=== PATIENT | female | born 1950 | race Caucasian/White ===

== ENCOUNTER 2019-05-31 14:41 | Inpatient (IN) | payer OTHER ==
[2019-05-31 14:49] VITALS: BMI 43.0
--- NOTE | 2019-05-31 15:21 | PDOC ---
History of Present Illness - General Chief Complaint: Respiratory Stated Complaint: DIFFICULTY BREATHING Time Seen by Provider: 05/31/19 14:55 Past History - Past Medical History Allergies/Adverse Reactions: Allergies Allergy/AdvReac Type Severity Reaction Status Date / Time No Known Allergies Allergy Verified 05/31/19 14:44 Home Medications: Ambulatory Orders NK [No Known Home Medication] 05/31/19 COPD: No - Psycho Social/Smoking Cessation Hx Smoking History: Never smoked Hx Alcohol Use: No Drug/Substance Use Hx: No *Physical Exam - Vital Signs Last Vital Signs Temp Pulse Resp BP Pulse Ox 97.9 F 88 30 H 194/106 H 88 L 05/31/19 14:48 05/31/19 14:48 05/31/19 14:48 05/31/19 14:48 05/31/19 14:48 ED Treatment Course - LABORATORY CBC & Chemistry Diagram: 05/31/19 16:14 05/31/19 16:19 Medical Decision Making - Medical Decision Making 05/31/19 16:13 HPI: 68yo F hx morbid obesity, nerve damage L side and chronic intermittent swelling of L hand and foot, and breast cancer (s/p 7 radiation treatments, then d/c'd treatments self because doesn't believe has cancer) sent by PCP Dr Ran Sanchez for SOB and QUIJANO x11yrs, worse past month, worse when lies down. Pt states she was diagnosed with breast cancer by a mammogram and lump in her L breast, but a biopsy wasn't done. Pt states she got 7 radiation treatments before a biopsy was done which said she had cancer, but pt didn't believe it and thought the care was incorrect to she stopped treatments in January and has not been to a doctor since until today, first appt with Dr Sanchez. Pt states she has had QUIJANO x11yrs but got worse since January, now unable to walk a few steps without SOB, and worse with lying down, especially worse the past 1mo. Since January she also c/o constant substernal heaviness that could be her reflux, endorses N/V after eating often, plus lots of burping. Used to take unknown reflux med but stopped months ago because ran out. 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 Denies hormone use, recent travel, recent illness, sick contacts, DVT/PE hx, recent surgeries, new leg swelling (chronic ankle swelling) , fever, chills, fatigue, headache, dizziness, numbness/tingling, weakness, vision changes, cough, palpitations, abdominal pain, blood in stool, diarrhea, constipation, dysuria, hematuria, confusion. ROS: Constitutional: Negative for chills, fever, fatigue, diaphoresis. HENT: Negative for sore throat, rhinorrhea, congestion. Eyes: Negative for visual disturbance. Respiratory: Positive for shortness of breath. Negative for cough, and wheezing. Cardiovascular: Positive for chest pain. Negative for palpitations, and new leg swelling. Gastrointestinal: Positive for nausea and vomiting. Negative for abdominal pain , blood in stool, constipation, diarrhea. Genitourinary: Negative for dysuria, flank pain, and hematuria. Musculoskeletal: Negative for myalgias, back pain, and neck pain. Skin: Positive for inverted nipple and skin dimpling L breast. Negative for rash. Neurological: Negative for light-headedness, dizziness, vertigo, syncope, weakness, numbness and headaches. Psychiatric/Behavioral: Negative for behavioral problems and confusion. PE: Gen: Alert, mild respiratory distress improves when sits upright, anxious- appearing, morbidly obese HEENT: PERRL, EOMI, MMM, NCAT. No conjunctival pallor. Sclera are non-icteric. CV: Regular rate and rhythm. No murmurs, rubs, or gallops. BREAST: Inverted L nipple with dimpling inferior L breast PULM: Moderate resp distress when lies down with lip pursing. CTAB (but difficult to assess 2/2 habitus), no wheezes, rales, or rhonchi. ABD: soft, NT, protuberant/distended, no rebound tenderness or guarding, no CVA tenderness. BACK: No TTP of c/t/l-spine. No step-offs or deformities. MSK: No bony deformities. 2+ pulses in all extremities. NEURO: AAOx3. PERRL. No gross CN deficits. Strength and sensation grossly intact throughout. EXTREMITIES: No cyanosis. No clubbing. No calf tenderness. 2+ pitting edema BLEs. Swollen L ankle and L hand (chronic per pt) PSYCH: Anxious mood and normal thought pattern. SKIN: Warm and dry. Normal capillary refill. No rashes. No jaundice. MDM: 68yo F hx morbid obesity, nerve damage L side and chronic intermittent swelling of L hand and foot, and breast cancer (s/p 7 radiation treatments, then d/c'd treatments self because doesn't believe has cancer) sent by PCP Dr Ran Sanchez for SOB and QUIJANO x11yrs, worse past month, worse when lies down. VS reviewed. Normal HR, afebrile, O2 sat and RR WNL when sitting upright but desats to 88% and RR increases when lies down or gets anxious, initially hypertensive but normotensive once relaxes. Most likely pulmonary edema and pleural effusion 2/2 malignancy. Also consider CHF exacerbation, other etiologies of fluid overload, COPD exacerbation, PNA, radiation pneumonitis, ACS/NV, arrhythmia, PE, metabolic derangement, anemia, infection -EKG reviewed: 84bpm, NSR, normal axis, normal intervals, no e/o acute ischemia -CXR reviewed: large heart, infiltrate, R hilar prominence, some fluid at L base with some atelectasis and/or infiltrate, some congestive changes, excessive soft tissues, no prior for comparison -Duplex LEs DVT, echo, lung: reviewed, notable for B-lines -Labs including BNP,cardiac profile -If sx persist despite lasix/bipap, consider CTPE -Lasix 40 -Bipap for fluid overload -Dispo: admit 05/31/19 17:27 Labs reviewed. Notable for BNP 168 Pt c/o chronic reflux and nausea, requesting meds. -Pepcid and Zofran Pt admitted by Attending Dr Schilling. -CTPE -CTAP to evmi for mets 05/31/19 23:16 Discussed pt's desire to leave AMA due to her insurance not covering admissions at this hospital. Called Dr Sanchez and spoke on the phone, he states that her insurance does cover emergency admissions (not direct admissions) so this admission will be covered. Informed pt of what Dr Sanchez said and pt agrees to be admitted. CTs reviewed. Pt given results. Discussed results with pt. CTA chest: IMPRESSION: Moderate left-sided and small to moderate right-sided pleural effusions are noted with resultant bibasilar compressive atelectasis. There is no definite CT evidence of pulmonary embolism. Evaluation of the lower lobe peripheral vessels is somewhat limited due to vessel crowding as a result of the described pleural effusions. Multifocal thoracolumbar, sternal and bilateral pelvic osteoblastic neoplastic lesions are noted. The partially imaged left breast demonstrates nonspecific soft tissue stranding and mild skin thickening - ? neoplastic disease and/or post treatment change. There is nonspecific soft tissue thickening within the left axilla which could be on the basis of scarring and/or confluent lymphadenopathy. A nonspecific mildly enlarged right hilar lymph node is noted. CTAP: Evaluation is somewhat limited due to body habitus. A small to moderate amount of ascites is seen within the abdomen and pelvis. Mesenteric soft tissue stranding is noted within the abdomen ventrally suggestive of possible carcinomatosis. Multifocal osteoblastic neoplastic lesions are seen. There is mild nonspecific left adrenal gland thickening. Minimal splenomegaly. Focal fatty infiltration is noted within the right hepatic lobe. The kidneys appear to demonstrate minimal to mild bilateral hydronephrosis versus small bilateral peripelvic cysts simulating minimal to mild hydronephrosis. There is no ureteral dilatation or urinary bladder overdistention. Discharge - Discharge Information Problems reviewed: Yes Clinical Impression/Diagnosis: Pleural effusion, Carcinomatosis - Admission Yes - Follow up/Referral - Patient Discharge Instructions - Post Discharge Activity
--- NOTE | 2019-05-31 16:10 | EKG ---
Test Reason : Blood Pressure : / mmHG Vent. Rate : 084 BPM Atrial Rate : 084 BPM P-R Int : 134 ms QRS Dur : 074 ms QT Int : 372 ms P-R-T Axes : 058 019 030 degrees QTc Int : 439 ms POOR DATA QUALITY, INTERPRETATION MAY BE ADVERSELY AFFECTED NORMAL SINUS RHYTHM NORMAL ECG NO PREVIOUS ECGS AVAILABLE Confirmed by JUANSI BRAMBILA MD ([id number]) on 05/31/2019 4:09:38 PM Referred By: Confirmed By:JUANIS BRAMBILA MD
[2019-05-31 16:52] LABS: EOS % 2.2 % (0-4.5); HEMATOCRIT 33.5 % (32.4-45.2); HEMOGLOBIN 11.2 GM/dL (10.7-15.3); LYMPH % 13.8 % (8-40); MCH 30.6 pg (25.7-33.7); MCHC 33.4 g/dl (32.0-36.0); MEAN CELL VOLUME 91.7 fl (80-96); MEAN PLT VOLUME 8.9 fl (7.5-11.1); MONO % 7.2 % (3.8-10.2); NEUT % 75.8 % (42.8-82.8); PLATELET COUNT 183 K/MM3 (134-434); RBC 3.65 M/mm3 (3.60-5.2); RDW 15.6 % (11.6-15.6); WHITE BLOOD COUNT 6.5 K/mm3 (4.0-10.0)
[2019-05-31] MEDS ORDERED: FUROSEMIDE 40 MG/4 ML INJECTABLE VIAL IVPUSH ONE (16:55)
--- NOTE | 2019-05-31 17:06 | PDOC ---
Attending Attestation - Resident Resident Name: Roseline Nicholas - ED Attending Attestation I have performed the following: I have examined & evaluated the patient, The case was reviewed & discussed with the resident, I agree w/resident's findings & plan, Exceptions are as noted - HPI HPI: 05/31/19 17:27 68yo female with poss hx of breast ca sent from Dr. Ran Grimes for eval of elevated bp, sob. Pt states she could barely breath last night in bed. Denies cp. Pt states she was dx with breast ca and underwent 8 sessions of radiation therapy. Pt states she saw dr. grimes for the first time today. Pt has not had a colonoscopy. Pt states her last pet scan showed "bone cancer". Pt presents sob , tachypnic, conversational dyspnea, hypertensive. - Physicial Exam PE: 05/31/19 17:33 Gen: aaox3, tachypnic, conversational dyspnea heart: +s1s2 reg lungs: diminished bs L base, rales diffusely, tachypnic, conversational dyspnea abd: soft, obese, no ttp ext: trace edema LE - Critical Care Time Total Critical Care Time: 45 Critical Care Statement: The care of this patient involved high complexity decision making to prevent further life threatening deterioration of the patient 's condition and/or to evaluate & treat vital organ system(s) failure or risk of failure. - Medical Decision Making 05/31/19 17:34 a/p: 68yo female with poss breast ca hx sent for eval of sob, tachypnea, hypoxia (84 RA) -labs sent, bnp, cardiac enzymes -bedside ultrasound shows b lines, pleural effusion on the L, ascites in the abd , hydronephrosis -cxr shows L pleural effusion and pulm vasc congestion -pt hypoxic, placed on bipap for comfort and work of breathing 05/31/19 17:37 cbc reviewed pt off bipap on nc and feeling better lasix ordered case discussed with Dr. Grimes who agrees with lasix and ct c/a/p ct pending Dr. Grimes accepts pt to service 05/31/19 19:31 pt states she does not want to be admitted here given her insurance does not cover sjr. pt states she will go to ct will discuss ct findings with dr. grimes pt states she will sign out after the emergency workup has been completed will continue to monitor and reassess discussed risks/benefits of ama discussed risks of leaving the hospital given her sob and pleural effusion Heart Score/ECG Review - ECG Intrepretation Comment:: 05/31/19 17:38 sinus at 84, nl axis, nl interval, no acute st/t wave findings
[2019-05-31 17:10] LABS: INR 1.01 (0.83-1.09); PROTHROMBIN TIME (PATIENT) 11.9 SEC (9.7-13.0)
[2019-05-31 17:13] LABS: ACTIVATED PTT 23.2 SECONDS (25.2-36.5)
[2019-05-31] MEDS ORDERED: FAMOTIDINE 20 MG/50 ML IVPB 20 MG/50 ML MG IVPB ONE ×2 (17:27→18:08)
[2019-05-31] MEDS ORDERED: ONDANSETRON 4 MG/2 ML VIAL IVPUSH ONE (17:27)
[2019-05-31 17:45] LABS: ALBUMIN 2.7 g/dl (3.4-5.0); ALK PHOS 65 U/L (45-117); ANION GAP 6 MMOL/L (8-16); BILIRUBIN,TOTAL 0.4 mg/dL (0.2-1); BLOOD UREA NITROGEN 14.2 mg/dL (7-18); CHLORIDE 113 mmol/L (98-107); CO2 27 mmol/L (21-32); CREATININE 0.7 mg/dL (0.55-1.3); GLUCOSE,RANDOM 76 mg/dL (74-106); MAGNESIUM 1.8 mg/dL (1.8-2.4); N-TERMINAL BNP 168.9 pg/ml (5-125); PHOSPHOROUS 2.9 mg/dL (2.5-4.9); POTASSIUM 3.4 mmol/L (3.5-5.1); SGOT/AST 38 U/L (15-37); SGPT/ALT 27 U/L (13-61); SODIUM 146 mmol/L (136-145); TOT PROT 5.6 g/dl (6.4-8.2)
[2019-05-31] MEDS ORDERED: ONDANSETRON 4 MG/2 ML VIAL ONE (18:08)
[2019-05-31] MEDS ORDERED: POTASSIUM CHLORIDE ORAL LIQUID 20 MEQ/15 ML PO ONE (23:38)
[2019-05-31] MEDS ORDERED: IPRATROPIUM BR 0.02% 0.5 MG/2.5 ML VIAL.NEB. NEB PRN (23:39)
--- NOTE | 2019-05-31 23:46 | HP ---
Admitting History and Physical - Admission Chief Complaint: pt came to my office new pt c/o sob at rest 1 wk and getting worst. pt diff saying full sentence sent er matthew History Source: Patient Limitations to Obtaining History: Poor Historian - Past Medical History Gastrointestinal: Yes: Ascites ...: No - Past Surgical History Past Surgical History: Yes: None - Smoking History Smoking history: Never smoked Have you smoked in the past 12 months: No - Alcohol/Substance Use Hx Alcohol Use: No - Social History Usual Living Arrangement: Yes: With Spouse History of Recent Travel: No Home Medications - Allergies Allergies/Adverse Reactions: Allergies Allergy/AdvReac Type Severity Reaction Status Date / Time No Known Allergies Allergy Verified 05/31/19 14:44 - Home Medications Home Medications: Ambulatory Orders NK [No Known Home Medication] 05/31/19 Family Medical History Family History: Unremarkable Review of Systems - Review of Systems Constitutional: reports: Weakness Eyes: reports: No Symptoms HENT: reports: No Symptoms Neck: reports: No Symptoms Cardiovascular: reports: No Symptoms Respiratory: reports: SOB Gastrointestinal: reports: No Symptoms Genitourinary: reports: No Symptoms Breasts: reports: Other (axilla neurapathy as per pt) Musculoskeletal: reports: Other (lt arm pin needles) Integumentary: reports: No Symptoms Neurological: reports: No Symptoms Endocrine: reports: No Symptoms Hematology/Lymphatic: reports: No Symptoms Psychiatric: reports: Anxiety Physical Examination Vital Signs: Vital Signs Temperature 97.7 F 05/31/19 20:49 Pulse Rate 102 H 05/31/19 20:49 Respiratory Rate 20 05/31/19 20:49 Blood Pressure 142/78 05/31/19 20:49 O2 Sat by Pulse Oximetry (%) 95 05/31/19 21:00 Constitutional: Yes: Well Nourished, Anxious Eyes: Yes: WNL HENT: Yes: WNL Neck: Yes: WNL Cardiovascular: Yes: WNL Respiratory: Yes: Diminished Gastrointestinal: Yes: Abdomen, Obese, Hypoactive Bowel Sounds ...Rectal Exam: Yes: Deferred Breast(s): Yes: WNL Musculoskeletal: Yes: WNL Edema: No Peripheral Pulses WNL: Yes Integumentary: Yes: WNL Neurological: Yes: WNL ...Motor Strength: WNL Psychiatric: Yes: WNL Labs: CBC, BMP 05/31/19 16:14 05/31/19 16:19 Problem List - Problems (1) Obese body habitus Code(s): E66.9 - OBESITY, UNSPECIFIED Assessment/Plan bipap k corrected onco pulm chest consults brain skelatel to complete cancer w/u reg diet bed rest dvt priphylasisi neb tx luis e inhalers chk labs in am
[2019-05-31] MEDS ORDERED: ALBUTEROL SO4 HFA INHALER IH PRN (23:49)
[2019-06-01] MEDS ORDERED: POTASSIUM CHLORIDE ORAL LIQUID 20 MEQ/15 ML ONE ×2 (00:21→00:29)
[2019-06-01 08:37] LABS: BASO % 0.5 % (0-2.0); EOS % 2.7 % (0-4.5); HEMOGLOBIN 11.1 GM/dL (10.7-15.3); LYMPH % 11.5 % (8-40); MCH 30.1 pg (25.7-33.7); MCHC 32.8 g/dl (32.0-36.0); MEAN CELL VOLUME 91.7 fl (80-96); MEAN PLT VOLUME 8.4 fl (7.5-11.1); MONO % 8.1 % (3.8-10.2); NEUT % 77.2 % (42.8-82.8); PLATELET COUNT 168 K/MM3 (134-434); RBC 3.71 M/mm3 (3.60-5.2); RDW 15.5 % (11.6-15.6); WHITE BLOOD COUNT 5.3 K/mm3 (4.0-10.0)
[2019-06-01 09:31] LABS: ALBUMIN 2.9 g/dl (3.4-5.0); BILIRUBIN,TOTAL 0.6 mg/dL (0.2-1); BLOOD UREA NITROGEN 18.1 mg/dL (7-18); CALCIUM 8.6 mg/dL (8.5-10.1); CREATININE 1.1 mg/dL (0.55-1.3); POTASSIUM 5.5 mmol/L (3.5-5.1); TOT PROT 6.6 g/dl (6.4-8.2)
--- NOTE | 2019-06-01 11:56 | PN ---
Progress Note (short form) - Note Progress Note: PULMONARY CONSULTATION DICTATED 06/01/19 IMP RESPIRATORY DISTRESS BILATERAL PLEURAL EFFUSIONS LIKELY SECONDARY TO ASCITES LIKELY MALIGNANT METASTATIC CA ? BREAST H/O BREAST CA S/P RT X 7 MULTILEVEL OSTEOBLASTIC LESIONS THORACOLUMBAR,PELVIC,STERNUM MORBID OBESITY PLAN O2,NIPPV NEEDED ABG CONSIDER THORACENTESIS LYMPH NODE BX ECHO MONITOR LYTES F/U CHEST X-RAY Problem List - Problems (1) Ascites Code(s): R18.8 - OTHER ASCITES (2) Carcinomatosis Code(s): C80.0 - DISSEMINATED MALIGNANT NEOPLASM, UNSPECIFIED (3) Obese body habitus Code(s): E66.9 - OBESITY, UNSPECIFIED (4) Pleural effusion Code(s): J90 - PLEURAL EFFUSION, NOT ELSEWHERE CLASSIFIED (5) Dyspnea Code(s): R06.00 - DYSPNEA, UNSPECIFIED (6) Respiratory distress Code(s): R06.03 - ACUTE RESPIRATORY DISTRESS
--- NOTE | 2019-06-01 12:49 | CONS ---
DATE OF CONSULTATION: 06/01/2019 REFERRING PHYSICIAN: Ran Sanchez MD HISTORY: Patient is a 68-year-old white female with past medical history of morbid obesity, nerve damage to the left side with chronic, intermittent swelling of the left hand and foot, history of recently diagnosed breast carcinoma in January 2019. Apparently, was treated with some radiation treatments and then discontinued treatments secondary to she did not believe she had cancer. Unsure whether or not she had a biopsy. Complains of shortness of breath and dyspnea on exertion. Patient states that since January she has started developing increasing shortness of breath with marked dyspnea with minimal exertion. Apparently, yesterday she went to see Dr. Sanchez with the above complaints, and she was noted to be markedly dyspneic with minimal exertion at which time she was advised to go to the emergency room. She denies any fevers or weight loss or night sweats. There is no history of occupational exposure to chemicals or fumes, and she is a nonsmoker. She denies any history of COPD or asthma in the past. She also has been complaining of increasing orthopnea. Denies any hemoptysis. On admission, she underwent a CTA of the chest, which revealed no evidence of pulmonary emboli. Revealed moderate bilateral pleural effusion left greater than right as well as abdominal CT revealed evidence of multifocal thoracolumbar and bilateral pelvic osteoblastic neoplastic lesions were noted. Patient was admitted. On admission, she was placed on BiPAP secondary to shortness of breath and transferred up to medical floor for management. PAST MEDICAL HISTORY: Again includes obesity, breast carcinoma status post RT x7. No biopsy performed. History of nerve damage left side with chronic, intermittent swelling left hand and foot. REVIEW OF SYSTEMS: Positive orthopnea. Positive dyspnea. No chest pain, no palpitations, no fever, no weight loss, no night sweats, no hemoptysis, no abdominal pain. CURRENT MEDICATIONS: Include albuterol and Aldactone. PHYSICAL EXAMINATION: General: Patient is a morbidly obese female awake, alert on BiPAP. Appears comfortable in no acute distress. Vital Signs: She is afebrile. Blood pressure 145/71, respiratory rate is 20. HEENT: Normocephalic, atraumatic. Neck: Supple,+ large left supraclavicular node Heart: Regular with S1, S2. Chest: Diminished breath sounds bilaterally. Abdomen: Soft. Bowel sounds are positive. Extremities: No cyanosis or edema. LABORATORIES: WBC 5.3, hemoglobin 11.1, hematocrit 34, platelet count 168,000, INR 1.01, BUN 18, creatinine 1.1. BNP 168.9. Chest CTA reveals moderate bilateral pleural effusions, left greater than right. Abdominal CT, again, [id number] ascites and multilevel thoracolumbar and vertebral body osteoblastic lesions consistent with metastatic disease and several osteoblastic lesions in the body of the sternum and multiple bilateral pelvic osteoblastic lesions. IMPRESSION: 1. Acute respiratory distress, etiology to be determined. 2. Bilateral pleural effusions likely secondary to ascites, likely malignant. 3. Metastatic carcinoma, likely breast. 4. History of breast carcinoma status post radiation therapy x7. 5. Multiple osteoblastic lesions consistent with metastatic disease and evidence of mesenteric stranding suspicious for carcinomatosis. 6. Morbid obesity. 7. Likely obstructive sleep apnea. PLAN: O2. NIPPV as needed. Check arterial blood gas. Consider thoracentesis, paracentesis to try to obtain diagnosis.Lymph node bx, Obtain echocardiogram. Monitor electrolytes. Oncology evaluation. Also, follow up chest x-ray. MAREK BARRETT M.D. [id number] MTDAllison
--- NOTE | 2019-06-01 12:52 | PN ---
Progress Note, Physician Chief Complaint: less sob now c/o gerd vss pulm onco appretiated - Current Medication List Current Medications: Active Medications Albuterol Sulfate (Ventolin Hfa Inhaler -) 2 puff IH Q4H PRN PRN Reason: SHORT OF BREATH/WHEEZING Ipratropium [place] (Atrovent 0.02% Nebulizer -) 1 amp NEB Q6H PRN PRN Reason: Dyspnea Stop: 06/07/19 23:39 Spironolactone (Aldactone -) 25 mg PO DAILY [facility] - Objective Vital Signs: Vital Signs Temperature 97.5 F L 06/01/19 08:00 Pulse Rate 81 06/01/19 08:00 Respiratory Rate 20 06/01/19 08:00 Blood Pressure 145/71 06/01/19 08:00 O2 Sat by Pulse Oximetry (%) 98 06/01/19 12:12 Constitutional: Yes: Calm Eyes: Yes: WNL HENT: Yes: WNL Cardiovascular: Yes: WNL Respiratory: Yes: Diminished Gastrointestinal: Yes: Abdomen, Obese, Ascites ...Rectal Exam: Yes: Deferred, Other Genitourinary: Yes: Vaginal Discharge Breast(s): Yes: Left, Mass Musculoskeletal: Yes: WNL Extremities: Yes: WNL Edema: Yes Edema: LLE: 1+, RLE: 1+ Integumentary: Yes: WNL ...Motor Strength: WNL Psychiatric: Yes: WNL Labs: CBC, BMP 06/01/19 08:00 06/01/19 08:00 INR, PTT INR 1.01 (0.83-1.09) 05/31/19 16:19 Problem List - Problems (1) Obese body habitus Assessment/Plan: carcinamatosis? primAry ? breast??? gerd l/s pain mild scale2 pl lung pl fluid asites? watchk levels Code(s): E66.9 - OBESITY, UNSPECIFIED Assessment/Plan f/u onco get all radiografics done for proper dx ca dr [place] ? taP PPI TX
--- NOTE | 2019-06-01 13:01 | PN ---
Progress Note, Physician - Current Medication List Current Medications: Active Medications Albuterol Sulfate (Ventolin Hfa Inhaler -) 2 puff IH Q4H PRN PRN Reason: SHORT OF BREATH/WHEEZING Ipratropium [place] (Atrovent 0.02% Nebulizer -) 1 amp NEB Q6H PRN PRN Reason: Dyspnea Stop: 06/07/19 23:39 Pantoprazole Sodium (Protonix -) 40 mg PO DAILY [facility] Spironolactone (Aldactone -) 25 mg PO DAILY [facility] - Objective Vital Signs: Vital Signs Temperature 97.5 F L 06/01/19 08:00 Pulse Rate 81 06/01/19 08:00 Respiratory Rate 20 06/01/19 08:00 Blood Pressure 145/71 06/01/19 08:00 O2 Sat by Pulse Oximetry (%) 98 06/01/19 12:12 Constitutional: Yes: Well Nourished Eyes: Yes: WNL HENT: Yes: Other (LT SUPRACLAVICULA MASS FLAT? LT NECK MASS LT AXILLA MASS) Neck: Yes: Lymphadenopathy Cardiovascular: Yes: WNL ...Rectal Exam: Yes: Deferred Genitourinary: Yes: WNL Breast(s): Yes: Left, Dimpling, Mass Musculoskeletal: Yes: WNL Extremities: Yes: WNL Edema: Yes Edema: LLE: 1+, RLE: 1+ Peripheral Pulses WNL: Yes Neurological: Yes: WNL ...Motor Strength: WNL Psychiatric: Yes: WNL Labs: CBC, BMP 06/01/19 08:00 06/01/19 08:00 INR, PTT INR 1.01 (0.83-1.09) 05/31/19 16:19 Problem List - Problems (1) Obese body habitus Code(s): E66.9 - OBESITY, UNSPECIFIED
--- NOTE | 2019-06-01 13:31 | PN ---
Progress Note (short form) - Note Progress Note: Patient seen and examined CONSULT DICTATED 68yearo old female , nulliparous. No hormones or BCP. Mammography in 06/2018- dense breasts January 2019 - seen by Dr. Frost- 7 treatments of RT PRIOR to biopsy. Then referreed to [facility] for biopsy of left breast . Details - not known. Had 2 additional treatments of RT and then discontinued same. No other treatment given. Presents now with bilateral pleural effusions, SOB, osteoblastic mets. Last Vital Signs Temp Pulse Resp BP Pulse Ox 97.5 F L 81 20 145/71 98 06/01/19 08:00 06/01/19 08:00 06/01/19 08:00 06/01/19 08:00 06/01/19 12:12 HEENT: DEBORAH, EOM Intact Oropharynx: No thrush, No mucositis Neck: Supple Nodes: Left supraclavicular node--3.5 x 3.5., left posterior erythematous cutaneous met- 2.5 x 2.5., occipital nodule 2x 2. Breasts: left breast indurated, thickened, inverted nipple6:00 area Cor: RSR, No murmurs, No gallops Lungs: diminished breast sounds bilaterallt Abd: Soft, Normal bowel sounds, obese, liver 3 FB Ext:No significant edema Skin: cutaneous, erythematous left posterior met CBC, BMP 06/01/19 08:00 06/01/19 08:00 Current Medications Generic Name Dose Route Start Last Admin Trade Name Freq PRN Reason Stop Dose Admin Albuterol Sulfate 2 puff 05/31/19 23:49 Ventolin Hfa Inhaler - IH Q4H PRN SHORT OF BREATH/WHEEZING Ipratropium [place] 1 amp 05/31/19 23:39 Atrovent 0.02% Nebulizer - NEB 06/07/19 23:39 Q6H PRN Dyspnea Pantoprazole Sodium 40 mg 06/02/19 10:00 Protonix - PO DAILY [facility] Spironolactone 25 mg 06/01/19 10:00 Aldactone - PO DAILY [facility] Impression: Metastatic breast carcinoma with estephania, bone, cutaneous ,? pleural, ? liver mets. (ascites) Suggest biopsy of either left supraclavicular node or left axillary node for ER , DE, Her-2-suyapa status. I contacted [facility] - -- on January,, patient had 2 biopsies of breast and axilla Both positive for invasive mammary carcinoma--(1.5, 1.4 cm in size) ER on first biopsy ->95%, DE >95%, Her-2 equivocal--additional studies- negative . Can also do thoracentesis for cytology and for improvement in SOB I placed a copy of [facility] imaging biopsies in chart.
[2019-06-01 13:32] LABS: ARTERIAL BLD GAS O2 SATURATION 96.8 % (95-98); ARTERIAL BLOOD GAS BASE EXCESS 5.3 meq/l (-2-2); ARTERIAL BLOOD GAS PCO2 52.5 mmHg (35-45); ARTERIAL BLOOD GAS PO2 90.1 mmHg (80-100); ARTERIAL BLOOD GAS pH 7.39 (7.35-7.45)
[2019-06-01 13:35] LABS: ALLENS TEST POSITIVE
--- NOTE | 2019-06-01 14:00 | CONS ---
DATE OF CONSULTATION: 06/01/2019 HISTORY OF PRESENT ILLNESS: This 68-year-old female presented with shortness of breath. Her history is somewhat vague. She has been developing progressive shortness of breath over the past several weeks. 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 History includes patient is a nulliparous female who had her menarche at age 16 and menopause at age 57. There are no hormones or control pills. She had normal, regular periods growing up. Patient is a nonsmoker, nondrinker. No illicit drugs. No industrial exposures. She is . FAMILY HISTORY: Negative for breast cancer, ovarian cancer. Patient states she had a mammogram done in June and told there was a density. In January, she was seen by Dr. Frost in the [facility] and received 7 radiation treatments, despite the fact that she did not have a biopsy. Thereafter, she went to [facility], underwent a biopsy. She had 2 additional radiation treatments and did not have any additional treatments thereafter; no hormones and no chemotherapy. REVIEW OF SYSTEMS: No headaches. No diplopia. No epistaxis. No dysphagia. The patient has reflux, shortness of breath, difficulty breathing. No chest pain. Some numbness on the left side, an indurated left breast, some nausea which she relates to the reflux. No diarrhea, constipation, melena. No dysuria or hematuria. No postmenopausal vaginal bleeding. Lower back pain. Some numbness of the lower extremities. CURRENT MEDICATIONS: Include Protonix, Aldactone, and Atrovent. ALLERGIES: No known allergies. CURRENT PHYSICAL: Vital Signs: BP 145/71, pulse 81, respiratory 20, temp 97.5 HEENT: DEBORAH. EOM intact. Oropharynx: Unremarkable. Lymphatics: There is a 3.5 x 3.5 cm left supraclavicular node. There is a cutaneous nodule, 2.5 x 2.5, erythematous and raised in the posterior neck. There is an occipital nodule 2 cm in size. There is also a left axillary node, 2.5 cm in size, hard, firm. Breasts: The left breast is indurated with nipple inversion, some retraction of the breast. The induration is mainly in the 6 o'clock axis. The right breast without masses. Cardiac: RSR. Abdomen: Obese. There is a liver 6 cm. Extremities: There is trace lower extremity edema. LABORATORY: Sodium 140 currently, K of 5.5, BUN 18, creatinine , calcium 8.6, AST 72, ALT 33, alkaline phosphatase 73, protein 6.6, albumin 2.9. INR 1.01, PTT 23. Chemistries: As aforementioned. 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 IMPRESSION: Patient with a likely metastatic breast CA. Need to get details of prior treatment. Would suggest biopsy of supraclavicular or axillary node for tissue. Thoracentesis can be performed for improvement in respiratory status. Based upon the results of the biopsy and based upon the history, further recommendations. GALE RUSH M.D. JUAN [id number]
--- NOTE | 2019-06-01 14:30 | CONSULT ---
Consult Consult Specialty:: Thoracic Surgery Referred by:: Medicine/Dr. Sanchez Reason for Consultation:: B/L pleural effusions - History of Present Illness Chief Complaint: dyspnea on exertion x 1 month History of Present Illness: 68F morbidly obese with h/o breast cancer s/p left RT, p/w dyspnea on exertion worse over last week, but duration about 1 month. Endorses weight loss as well. 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 Pulmonary: Yes: Other (b/l pleural effusions) Gastrointestinal: Yes: Ascites ...: No - Past Surgical History Past Surgical History: Yes: None - Alcohol/Substance Use Hx Alcohol Use: No - Smoking History Smoking history: Never smoked Have you smoked in the past 12 months: No - Social History History of Recent Travel: No Home Medications - Allergies Allergies/Adverse Reactions: Allergies Allergy/AdvReac Type Severity Reaction Status Date / Time No Known Allergies Allergy Verified 05/31/19 14:44 - Home Medications Home Medications: Ambulatory Orders NK [No Known Home Medication] 05/31/19 Review of Systems - Review of Systems Constitutional: reports: Weakness Respiratory: reports: SOB on Exertion Physical Exam Vital Signs: Vital Signs Temperature 97.5 F L 06/01/19 08:00 Pulse Rate 81 06/01/19 08:00 Respiratory Rate 20 06/01/19 08:00 Blood Pressure 145/71 06/01/19 08:00 O2 Sat by Pulse Oximetry (%) 98 06/01/19 12:12 Labs: CBC, BMP 06/01/19 08:00 06/01/19 08:00 Imaging - Results Cat Scan: Image Reviewed Problem List - Problems (1) Ascites Code(s): R18.8 - OTHER ASCITES (2) Dyspnea Code(s): R06.00 - DYSPNEA, UNSPECIFIED (3) Obese body habitus Code(s): E66.9 - OBESITY, UNSPECIFIED (4) Pleural effusion Code(s): J90 - PLEURAL EFFUSION, NOT ELSEWHERE CLASSIFIED (5) Respiratory distress Code(s): R06.03 - ACUTE RESPIRATORY DISTRESS Assessment/Plan 68F obese, likely metastatic breast cancer (bone lesions, pleural effusions b/l , ascites) p/w vee: --Agree with Dr. Degroot and Dr. Malone to obtain tissue for therapy, could include thoracentesis or other biopsy but effusions are small and unlikely to palliate with drainage at this time;
--- NOTE | 2019-06-01 15:51 | ECHO ---
Name: ANAISOUMAR MORA F Exam:Adult Echocardiogram Study Date: 06/01/2019 03:20 PM Age: 68 yrs Reason For Study: R/O PERICARDIAL EFFUSION, SOB AT REST Height: 70 in Weight: 335 lb BSA: 2.6 m2 MMode/2D Measurements & Calculations IVSd: 1.2 cm Ao root diam: 3.7 cm LVIDd: 4.5 cm LA dimension: 3.6 cm LVIDs: 3.0 cm ACS: 2.3 cm LVPWd: 1.2 cm EDV(Teich): 90.1 ml LVOT diam: 2.0 cm ESV(Teich): 33.8 ml LAV (MOD-bp): 72.0 ml TAPSE: 1.8 cm RV S Gonzalo: 19.8 cm/sec Doppler Measurements & Calculations MV E max gonzalo: 76.0 cm/sec Ao V2 max: 157.5 cm/sec MV A max gonzalo: 77.0 cm/sec Ao max P.9 mmHg MV E/A: 0.99 Ao V2 mean: 105.1 cm/sec MV dec time: 0.20 sec Ao mean P.1 mmHg Ao V2 VTI: 25.[address](I,D): 2.[address](V,D): 2.6 cm2 LV V1 max P.7 mmHg SV(LVOT): 71.7 ml LV V1 mean P.4 mmHg LV V1 max: 129.4 cm/sec LV V1 mean: 83.5 cm/sec LV V1 VTI: 22.6 cm TR max gonzalo: 253.8 cm/sec PA V2 max: 104.5 cm/sec TR max P.8 mmHg PA max P.4 mmHg Med Peak E' Gonzalo: 7.0 cm/sec Med E/e': 10.9 Lat Peak E' Gonzalo: 12.7 cm/sec Lat E/e': 6.0 Tech Comments TDS. Morbidly obese. Suboptimal PLAX/SAX windows. Procedure The study was technically difficult with many images being suboptimal in quality. Left Ventricle Left ventricular systolic function is grossly normal. Ejection Fraction = 55-60%. Regional wall motio n abnormalities cannot be excluded due to limited visualization. Right Ventricle The right ventricle is grossly normal size. The right ventricular systolic function is grossly normal . Atria Normal left and right atrial size and function. Mitral Valve The mitral valve is normal in structure and function. There is mild mitral regurgitation. Tricuspid Valve The tricuspid valve is normal in structure and function. There is mild tricuspid regurgitation. Aortic Valve The aortic valve opens well. No hemodynamically significant valvular aortic stenosis. No aortic regur gitation is present. Pulmonic Valve The pulmonic valve is not well seen, but is grossly normal. There is no pulmonic valvular stenosis. Great Vessels The aortic root is normal size. Pericardium/Pleura There is no pericardial effusion. Interpretation Summary There is no pericardial effusion. The study was technically difficult with many images being suboptimal in quality. Regional wall motion abnormalities cannot be excluded due to limited visualization. Left ventricular systolic function is grossly normal. Ejection Fraction = 55-60%. There is mild mitral regurgitation. There is mild tricuspid regurgitation. MD Nova *Brian 06/01/2019 03:51 PM
[2019-06-01] MEDS: SPIRONOLACTONE 25 MG TABLET (FP) PO SCH (18:13)
[2019-06-02 06:57] LABS: BASO % 0.5 % (0-2.0); EOS % 3.4 % (0-4.5); HEMATOCRIT 33.4 % (32.4-45.2); HEMOGLOBIN 10.9 GM/dL (10.7-15.3); MCH 30.4 pg (25.7-33.7); MCHC 32.8 g/dl (32.0-36.0); MEAN CELL VOLUME 92.9 fl (80-96); MEAN PLT VOLUME 8.8 fl (7.5-11.1); MONO % 8.1 % (3.8-10.2); PLATELET COUNT 166 K/MM3 (134-434); RBC 3.59 M/mm3 (3.60-5.2); RDW 15.4 % (11.6-15.6); WHITE BLOOD COUNT 4.8 K/mm3 (4.0-10.0)
[2019-06-02 07:38] LABS: ALBUMIN 2.9 g/dl (3.4-5.0); BILIRUBIN,TOTAL 0.4 mg/dL (0.2-1); BLOOD UREA NITROGEN 20.5 mg/dL (7-18); CALCIUM 8.5 mg/dL (8.5-10.1); POTASSIUM 4.2 mmol/L (3.5-5.1); TOT PROT 6.1 g/dl (6.4-8.2)
[2019-06-02] MEDS: PANTOPRAZOLE 40 MG TABLET PO SCH (09:31)
[2019-06-02] MEDS: SPIRONOLACTONE 25 MG TABLET (FP) PO SCH (09:31)
--- NOTE | 2019-06-02 11:43 | PN ---
Progress Note, Physician Chief Complaint: sob slight decrfeas vss - Current Medication List Current Medications: Active Medications Albuterol Sulfate (Ventolin Hfa Inhaler -) 2 puff IH Q4H PRN PRN Reason: SHORT OF BREATH/WHEEZING Ipratropium [place] (Atrovent 0.02% Nebulizer -) 1 amp NEB Q6H PRN PRN Reason: Dyspnea Stop: 06/07/19 23:39 Pantoprazole Sodium (Protonix -) 40 mg PO DAILY [facility] Last Admin: 06/02/19 09:31 Dose: 40 mg Spironolactone (Aldactone -) 25 mg PO DAILY [facility] Last Admin: 06/02/19 09:31 Dose: 25 mg - Objective Vital Signs: Vital Signs Temperature 97.9 F 06/02/19 09:33 Pulse Rate 98 H 06/02/19 09:33 Respiratory Rate 20 06/02/19 09:33 Blood Pressure 123/73 06/02/19 09:33 O2 Sat by Pulse Oximetry (%) 98 06/02/19 09:00 Constitutional: Yes: Anxious Eyes: Yes: WNL HENT: Yes: WNL, Other Neck: Yes: Other (nucal mass lt supraclavicula mass) Respiratory: Yes: Diminished Gastrointestinal: Yes: Ascites, Hypoactive Bowel Sounds ...Rectal Exam: Yes: Deferred Genitourinary: Yes: WNL Breast(s): Yes: Left, Dimpling, Mass Musculoskeletal: Yes: WNL Extremities: Yes: Other (lt axilla mass) Edema: No Peripheral Pulses WNL: Yes Integumentary: Yes: WNL Neurological: Yes: WNL ...Motor Strength: WNL Labs: CBC, BMP 06/02/19 06:20 06/02/19 06:20 INR, PTT INR 1.01 (0.83-1.09) 05/31/19 16:19 Problem List - Problems (1) Obese body habitus Code(s): E66.9 - OBESITY, UNSPECIFIED Assessment/Plan dr [place] to do bx mass lt clavicula tuesday sofía to feed no problam vss pleural tap will not give us defenative dx ck labs in am f/u onco for propable breast primary carciasmatosid
--- NOTE | 2019-06-02 13:58 | PN ---
Progress Note, Physician History of Present Illness: Continues to have SOB with ambulation. - Current Medication List Current Medications: Active Medications Albuterol Sulfate (Ventolin Hfa Inhaler -) 2 puff IH Q4H PRN PRN Reason: SHORT OF BREATH/WHEEZING Ipratropium [place] (Atrovent 0.02% Nebulizer -) 1 amp NEB Q6H PRN PRN Reason: Dyspnea Stop: 06/07/19 23:39 Pantoprazole Sodium (Protonix -) 40 mg PO DAILY [facility] Last Admin: 06/02/19 09:31 Dose: 40 mg Spironolactone (Aldactone -) 25 mg PO DAILY [facility] Last Admin: 06/02/19 09:31 Dose: 25 mg - Objective Vital Signs: Vital Signs Temperature 97.9 F 06/02/19 09:33 Pulse Rate 98 H 06/02/19 09:33 Respiratory Rate 20 06/02/19 09:33 Blood Pressure 123/73 06/02/19 09:33 O2 Sat by Pulse Oximetry (%) 95 06/02/19 11:45 Constitutional: Yes: No Distress, Calm Eyes: Yes: Conjunctiva Clear Cardiovascular: Yes: Regular Rate and Rhythm Respiratory: Yes: Regular Edema: No Labs: CBC, BMP 06/02/19 06:20 06/02/19 06:20 INR, PTT INR 1.01 (0.83-1.09) 05/31/19 16:19 Assessment/Plan 68F with likely metastatic breast cancer (bone lesions, pleural effusions b/l, ascites) p/w dyspnea. Pt was treated with RT x 7 to breast mass by Dr. Frost (no biopsy). Had bx of breast and axilla at [facility] in 01/2019 ( invasive mammary carcinoma, 1.5, 1.4 cm in size. ER on first biopsy ->95%, [place] > 95%, Her-2 equivocal Suggest biopsy of either left supraclavicular node or left axillary node for ER , NE, Her-2-suyapa status. Can also do thoracentesis for cytology and for improvement in SOB
--- NOTE | 2019-06-02 15:13 | PN ---
Progress Note (short form) - Note Progress Note: Breathing feels a little better today. Used NIPPV overnight. Less SOB. Now on NC O2. Intake & Output 05/30/19 05/31/19 06/01/19 06/02/19 23:59 23:59 23:59 23:59 Intake Total 50 490 Output Total 200 Balance -150 490 Weight 300 lb 300 lb Last Vital Signs Temp Pulse Resp BP Pulse Ox 98.1 F 80 20 149/99 95 06/02/19 14:00 06/02/19 14:00 06/02/19 09:33 06/02/19 14:00 06/02/19 11:45 Active Medications Albuterol Sulfate (Ventolin Hfa Inhaler -) 2 puff IH Q4H PRN PRN Reason: SHORT OF BREATH/WHEEZING Ipratropium [place] (Atrovent 0.02% Nebulizer -) 1 amp NEB Q6H PRN PRN Reason: Dyspnea Stop: 06/07/19 23:39 Pantoprazole Sodium (Protonix -) 40 mg PO DAILY [facility] Last Admin: 06/02/19 09:31 Dose: 40 mg Spironolactone (Aldactone -) 25 mg PO DAILY [facility] Last Admin: 06/02/19 09:31 Dose: 25 mg Constitutional: Yes: NAD on NC O2 Eyes: Yes: WNL HENT: Yes: WNL, Other Neck: Yes: (+) Mass Respiratory: Yes: Diminished Gastrointestinal: Yes: Ascites, (+) BS, obese ...Rectal Exam: Yes: Deferred Genitourinary: Yes: WNL Breast(s): Yes: Left, Dimpling, Mass Musculoskeletal: Yes: WNL Extremities: Yes: Other (lt axilla mass) Edema: No Peripheral Pulses WNL: Yes Integumentary: Yes: WNL Neurological: Yes: WNL ...Motor Strength: WNL Labs: Laboratory Results - last 24 hr 06/02/19 06/02/19 06:20 06:20 WBC 4.8 RBC 3.59 L Hgb 10.9 Hct 33.4 MCV 92.9 MCH 30.4 MCHC 32.8 RDW 15.4 Plt Count 166 MPV 8.8 Absolute Neuts (auto) 3.6 Neutrophils % 75.0 Lymphocytes % 13.0 Monocytes % 8.1 Eosinophils % 3.4 Basophils % 0.5 Nucleated RBC % 0 Sodium 143 Potassium 4.2 Chloride 107 Carbon Dioxide 32 Anion Gap 4 L BUN 20.5 H Creatinine 1.0 Est GFR (CKD-EPI)AfAm 67.99 Est GFR (CKD-EPI)NonAf 58.66 Random Glucose 93 Calcium 8.5 Total Bilirubin 0.4 AST 42 H ALT 34 Alkaline Phosphatase 73 Total Protein 6.1 L Albumin 2.9 L Problem List - Problems (1) Ascites Code(s): R18.8 - OTHER ASCITES (2) Carcinomatosis Code(s): C80.0 - DISSEMINATED MALIGNANT NEOPLASM, UNSPECIFIED (3) Obese body habitus Code(s): E66.9 - OBESITY, UNSPECIFIED (4) Pleural effusion Code(s): J90 - PLEURAL EFFUSION, NOT ELSEWHERE CLASSIFIED (5) Dyspnea Code(s): R06.00 - DYSPNEA, UNSPECIFIED (6) Respiratory distress Code(s): R06.03 - ACUTE RESPIRATORY DISTRESS IMP RESPIRATORY DISTRESS BILATERAL PLEURAL EFFUSIONS LIKELY SECONDARY TO ASCITES LIKELY MALIGNANT METASTATIC CA ? BREAST H/O BREAST CA S/P RT X 7 MULTILEVEL OSTEOBLASTIC LESIONS THORACOLUMBAR,PELVIC,STERNUM MORBID OBESITY PLAN O2,NIPPV NEEDED ORDER ENTERED FOR THORACENTESIS (OR WILL NEED OTHER TISSUE DIAGNOSIS) (?) LYMPH NODE BX MONITOR IVAN Almanza
[2019-06-02] MEDS ORDERED: MAG HYDROX/AL HYDROX/SIMETH 30 ML UNIT-DOSE CUP PO PRN (22:52)
[2019-06-03 07:28] LABS: BASO % 0.5 % (0-2.0); EOS % 3.2 % (0-4.5); HEMATOCRIT 32.1 % (32.4-45.2); HEMOGLOBIN 10.6 GM/dL (10.7-15.3); LYMPH % 15.7 % (8-40); MCH 30.5 pg (25.7-33.7); MEAN CELL VOLUME 92.6 fl (80-96); MEAN PLT VOLUME 8.5 fl (7.5-11.1); NEUT % 72.6 % (42.8-82.8); PLATELET COUNT 163 K/MM3 (134-434); RBC 3.47 M/mm3 (3.60-5.2); RDW 15.5 % (11.6-15.6); WHITE BLOOD COUNT 4.5 K/mm3 (4.0-10.0)
[2019-06-03 07:56] LABS: ALBUMIN 2.9 g/dl (3.4-5.0); BILIRUBIN,TOTAL 0.6 mg/dL (0.2-1); CALCIUM 8.5 mg/dL (8.5-10.1); CREATININE 0.9 mg/dL (0.55-1.3); POTASSIUM 4.2 mmol/L (3.5-5.1); TOT PROT 6.1 g/dl (6.4-8.2)
[2019-06-03] MEDS: PANTOPRAZOLE 40 MG TABLET PO SCH (10:52)
[2019-06-03] MEDS: SPIRONOLACTONE 25 MG TABLET (FP) PO SCH (10:52)
--- NOTE | 2019-06-03 12:05 | EKG ---
Test Reason : Blood Pressure : / mmHG Vent. Rate : 089 BPM Atrial Rate : 088 BPM P-R Int : 000 ms QRS Dur : 076 ms QT Int : 360 ms P-R-T Axes : 000 017 008 degrees QTc Int : 438 ms NORMAL SINUS RHYTHM NONSPECIFIC ST ABNORMALITY Confirmed by DELLA MCGEE MD ([id number]) on 06/03/2019 12:05:11 PM Referred By: Confirmed By:DELLA MCGEE MD
--- NOTE | 2019-06-03 13:55 | PN ---
Progress Note, Physician History of Present Illness: nl bm vss tolerated dietb well oob ok less sob - Current Medication List Current Medications: Active Medications Al Hydroxide/Mg Hydroxide (Mylanta Oral Suspension -) 30 ml PO Q6H PRN PRN Reason: INDIGESTION Albuterol Sulfate (Ventolin Hfa Inhaler -) 2 puff IH Q4H PRN PRN Reason: SHORT OF BREATH/WHEEZING Ipratropium [place] (Atrovent 0.02% Nebulizer -) 1 amp NEB Q6H PRN PRN Reason: Dyspnea Stop: 06/07/19 23:39 Pantoprazole Sodium (Protonix -) 40 mg PO DAILY [facility] Last Admin: 06/03/19 10:52 Dose: 40 mg Spironolactone (Aldactone -) 25 mg PO DAILY [facility] Last Admin: 06/03/19 10:52 Dose: 25 mg - Objective Vital Signs: Vital Signs Temperature 98.2 F 06/03/19 13:00 Pulse Rate 80 06/03/19 13:00 Respiratory Rate 18 06/03/19 13:00 Blood Pressure 134/90 06/03/19 13:00 O2 Sat by Pulse Oximetry (%) 94 L 06/03/19 13:00 Constitutional: Yes: No Distress Eyes: Yes: WNL, Other HENT: Yes: WNL Neck: Yes: WNL Cardiovascular: Yes: WNL Respiratory: Yes: Diminished Gastrointestinal: Yes: Normal Bowel Sounds, Hypoactive Bowel Sounds ...Rectal Exam: Yes: Deferred Genitourinary: Yes: WNL Breast(s): Yes: Left, Dimpling, Mass Musculoskeletal: Yes: WNL Extremities: Yes: WNL Edema: No Peripheral Pulses WNL: Yes Integumentary: Yes: WNL Neurological: Yes: WNL ...Motor Strength: WNL Psychiatric: Yes: WNL Labs: CBC, BMP 06/03/19 06:30 06/03/19 06:30 INR, PTT INR 1.01 (0.83-1.09) 05/31/19 16:19 Problem List - Problems (1) Obese body habitus Code(s): E66.9 - OBESITY, UNSPECIFIED Assessment/Plan bx lt supraclaviula mass in am
--- NOTE | 2019-06-03 14:45 | PN ---
Progress Note (short form) - Note Progress Note: Breathing feels better today. Able to lay more flat. Used NIPPV overnight. Less SOB. Intake & Output 05/31/19 06/01/19 06/02/19 06/03/19 23:59 23:59 23:59 23:59 Intake Total 50 1390 340 Output Total 200 Balance -150 1390 340 Weight 300 lb 300 lb Last Vital Signs Temp Pulse Resp BP Pulse Ox 98.2 F 80 18 134/90 94 L 06/03/19 13:00 06/03/19 13:00 06/03/19 13:00 06/03/19 13:00 06/03/19 13:00 Active Medications Al Hydroxide/Mg Hydroxide (Mylanta Oral Suspension -) 30 ml PO Q6H PRN PRN Reason: INDIGESTION Albuterol Sulfate (Ventolin Hfa Inhaler -) 2 puff IH Q4H PRN PRN Reason: SHORT OF BREATH/WHEEZING Ipratropium [place] (Atrovent 0.02% Nebulizer -) 1 amp NEB Q6H PRN PRN Reason: Dyspnea Stop: 06/07/19 23:39 Pantoprazole Sodium (Protonix -) 40 mg PO DAILY [facility] Last Admin: 06/03/19 10:52 Dose: 40 mg Spironolactone (Aldactone -) 25 mg PO DAILY [facility] Last Admin: 06/03/19 10:52 Dose: 25 mg Constitutional: Yes: NAD on NC O2 Eyes: Yes: WNL HENT: Yes: WNL, Other Neck: Yes: (+) Mass Respiratory: Yes: Diminished Gastrointestinal: Yes: Ascites, (+) BS, obese ...Rectal Exam: Yes: Deferred Genitourinary: Yes: WNL Breast(s): Yes: Left, Dimpling, Mass Musculoskeletal: Yes: WNL Extremities: Yes: Other (lt axilla mass) Edema: No Peripheral Pulses WNL: Yes Integumentary: Yes: WNL Neurological: Yes: WNL ...Motor Strength: WNL Labs: Laboratory Results - last 24 hr 06/01/19 06/02/19 06/02/19 16:30 06:20 23:00 WBC RBC Hgb Hct MCV MCH MCHC RDW Plt Count MPV Absolute Neuts (auto) Neutrophils % Lymphocytes % Monocytes % Eosinophils % Basophils % Nucleated RBC % Sodium Potassium Chloride Carbon Dioxide Anion Gap BUN Creatinine Est GFR (CKD-EPI)AfAm Est GFR (CKD-EPI)NonAf Random Glucose Calcium Total Bilirubin AST ALT Alkaline Phosphatase Troponin I < 0.02 Total Protein Albumin Carcinoembryonic Ag 3.9 CA 19-9 Antigen 61 H CA 125 Antigen 202.2 H 06/03/19 06/03/19 06:30 06:30 WBC 4.5 RBC 3.47 L Hgb 10.6 L Hct 32.1 L MCV 92.6 MCH 30.5 MCHC 33.0 RDW 15.5 Plt Count 163 MPV 8.5 Absolute Neuts (auto) 3.2 Neutrophils % 72.6 Lymphocytes % 15.7 D Monocytes % 8.0 Eosinophils % 3.2 Basophils % 0.5 Nucleated RBC % 0 Sodium 143 Potassium 4.2 Chloride 106 Carbon Dioxide 33 H Anion Gap 4 L BUN 20.0 H Creatinine 0.9 Est GFR (CKD-EPI)AfAm 77.22 Est GFR (CKD-EPI)NonAf 66.63 Random Glucose 91 Calcium 8.5 Total Bilirubin 0.6 AST 37 ALT 31 Alkaline Phosphatase 71 Troponin I Total Protein 6.1 L Albumin 2.9 L Carcinoembryonic Ag CA 19-9 Antigen CA 125 Antigen Problem List - Problems (1) Ascites Code(s): R18.8 - OTHER ASCITES (2) Carcinomatosis Code(s): C80.0 - DISSEMINATED MALIGNANT NEOPLASM, UNSPECIFIED (3) Obese body habitus Code(s): E66.9 - OBESITY, UNSPECIFIED (4) Pleural effusion Code(s): J90 - PLEURAL EFFUSION, NOT ELSEWHERE CLASSIFIED (5) Dyspnea Code(s): R06.00 - DYSPNEA, UNSPECIFIED (6) Respiratory distress Code(s): R06.03 - ACUTE RESPIRATORY DISTRESS IMP RESPIRATORY DISTRESS BILATERAL PLEURAL EFFUSIONS LIKELY SECONDARY TO ASCITES LIKELY MALIGNANT METASTATIC CA ? BREAST H/O BREAST CA S/P RT X 7 MULTILEVEL OSTEOBLASTIC LESIONS THORACOLUMBAR,PELVIC,STERNUM MORBID OBESITY PLAN O2,NIPPV NEEDED ORDER ENTERED FOR THORACENTESIS (OR WILL NEED OTHER TISSUE DIAGNOSIS) (?) LYMPH NODE BX MONITOR IVAN Almanza
--- NOTE | 2019-06-03 17:30 | PN ---
Progress Note, Physician History of Present Illness: Less SOB though still with significant dyspnea when ambulating - Current Medication List Current Medications: Active Medications Al Hydroxide/Mg Hydroxide (Mylanta Oral Suspension -) 30 ml PO Q6H PRN PRN Reason: INDIGESTION Albuterol Sulfate (Ventolin Hfa Inhaler -) 2 puff IH Q4H PRN PRN Reason: SHORT OF BREATH/WHEEZING Ipratropium [place] (Atrovent 0.02% Nebulizer -) 1 amp NEB Q6H PRN PRN Reason: Dyspnea Stop: 06/07/19 23:39 Pantoprazole Sodium (Protonix -) 40 mg PO DAILY [facility] Last Admin: 06/03/19 10:52 Dose: 40 mg Spironolactone (Aldactone -) 25 mg PO DAILY [facility] Last Admin: 06/03/19 10:52 Dose: 25 mg - Objective Vital Signs: Vital Signs Temperature 97.8 F 06/03/19 14:00 Pulse Rate 80 06/03/19 14:00 Respiratory Rate 18 06/03/19 13:00 Blood Pressure 149/97 06/03/19 14:00 O2 Sat by Pulse Oximetry (%) 91 L 06/03/19 15:46 Constitutional: Yes: No Distress, Calm Eyes: Yes: Conjunctiva Clear Cardiovascular: Yes: Regular Rate and Rhythm Respiratory: Yes: Regular, CTA Bilaterally Gastrointestinal: Yes: Soft Edema: No Labs: CBC, BMP 06/03/19 06:30 06/03/19 06:30 INR, PTT INR 1.01 (0.83-1.09) 05/31/19 16:19 Assessment/Plan 68F with likely metastatic breast cancer (bone lesions, pleural effusions b/l, ascites) p/w dyspnea. Pt was treated with RT x 7 to breast mass by Dr. Frost (no biopsy). Had bx of breast and axilla at [facility] in 01/2019 ( invasive mammary carcinoma, 1.5, 1.4 cm in size. ER on first biopsy ->95%, [place] > 95%, Her-2 equivocal Suggest biopsy of either left supraclavicular node or left axillary node for ER , [place], Her-2-suyapa status. Can also do thoracentesis for cytology and for improvement in SOB
[2019-06-04] MEDS: PANTOPRAZOLE 40 MG TABLET PO SCH (10:13)
[2019-06-04] MEDS: SPIRONOLACTONE 25 MG TABLET (FP) PO SCH (10:13)
--- NOTE | 2019-06-04 13:33 | PN ---
Progress Note (short form) - Note Progress Note: On a stretcher going to IR for testing. Breathing feels better today. Less SOB. Intake & Output 06/01/19 06/02/19 06/03/19 06/04/19 23:59 23:59 23:59 23:59 Intake Total 50 1390 460 120 Output Total 200 Balance -150 1390 460 120 Weight 300 lb Last Vital Signs Temp Pulse Resp BP Pulse Ox 97.9 F 94 H 20 144/90 97 06/04/19 10:00 06/04/19 10:00 06/04/19 10:00 06/04/19 10:00 06/04/19 09:00 Active Medications Al Hydroxide/Mg Hydroxide (Mylanta Oral Suspension -) 30 ml PO Q6H PRN PRN Reason: INDIGESTION Albuterol Sulfate (Ventolin Hfa Inhaler -) 2 puff IH Q4H PRN PRN Reason: SHORT OF BREATH/WHEEZING Amlodipine Besylate (Norvasc -) 5 mg PO DAILY [facility] Ipratropium [place] (Atrovent 0.02% Nebulizer -) 1 amp NEB Q6H PRN PRN Reason: Dyspnea Stop: 06/07/19 23:39 Pantoprazole Sodium (Protonix -) 40 mg PO DAILY [facility] Last Admin: 06/04/19 10:13 Dose: 40 mg Spironolactone (Aldactone -) 25 mg PO DAILY [facility] Last Admin: 06/04/19 10:13 Dose: 25 mg Constitutional: Yes: NAD on NC O2 Eyes: Yes: WNL HENT: Yes: WNL, Other Neck: Yes: (+) Mass Respiratory: Yes: Diminished Gastrointestinal: Yes: Ascites, (+) BS, obese ...Rectal Exam: Yes: Deferred Genitourinary: Yes: WNL Breast(s): Yes: Left, Dimpling, Mass Musculoskeletal: Yes: WNL Extremities: Yes: Other (lt axilla mass) Edema: No Peripheral Pulses WNL: Yes Integumentary: Yes: WNL Neurological: Yes: WNL ...Motor Strength: WNL Labs: Problem List - Problems (1) Ascites Code(s): R18.8 - OTHER ASCITES (2) Carcinomatosis Code(s): C80.0 - DISSEMINATED MALIGNANT NEOPLASM, UNSPECIFIED (3) Obese body habitus Code(s): E66.9 - OBESITY, UNSPECIFIED (4) Pleural effusion Code(s): J90 - PLEURAL EFFUSION, NOT ELSEWHERE CLASSIFIED (5) Dyspnea Code(s): R06.00 - DYSPNEA, UNSPECIFIED (6) Respiratory distress Code(s): R06.03 - ACUTE RESPIRATORY DISTRESS IMP RESPIRATORY DISTRESS BILATERAL PLEURAL EFFUSIONS LIKELY SECONDARY TO ASCITES LIKELY MALIGNANT METASTATIC CA ? BREAST H/O BREAST CA S/P RT X 7 MULTILEVEL OSTEOBLASTIC LESIONS THORACOLUMBAR,PELVIC,STERNUM MORBID OBESITY PLAN SUPPLEMENTAL O2 TO MAINTAIN SATURATION NIPPV NEEDED TISSUE SAMPLING BY IR SAULO Almanza
--- NOTE | 2019-06-04 14:59 | PN ---
Progress Note, Physician Chief Complaint: feels less sob post thorocetuisis 1 liter fluid out unable to do mass bx to small ? spoke to dr moore nl bm diet ok ? exisional bx if needed mamogram today skelatal survey don e? nl - Current Medication List Current Medications: Active Medications Al Hydroxide/Mg Hydroxide (Mylanta Oral Suspension -) 30 ml PO Q6H PRN PRN Reason: INDIGESTION Albuterol Sulfate (Ventolin Hfa Inhaler -) 2 puff IH Q4H PRN PRN Reason: SHORT OF BREATH/WHEEZING Amlodipine Besylate (Norvasc -) 5 mg PO DAILY [facility] Ipratropium [place] (Atrovent 0.02% Nebulizer -) 1 amp NEB Q6H PRN PRN Reason: Dyspnea Stop: 06/07/19 23:39 Pantoprazole Sodium (Protonix -) 40 mg PO DAILY [facility] Last Admin: 06/04/19 10:13 Dose: 40 mg Spironolactone (Aldactone -) 25 mg PO DAILY [facility] Last Admin: 06/04/19 10:13 Dose: 25 mg - Objective Vital Signs: Vital Signs Temperature 97.9 F 06/04/19 10:00 Pulse Rate 94 H 06/04/19 10:00 Respiratory Rate 20 06/04/19 10:00 Blood Pressure 144/90 06/04/19 10:00 O2 Sat by Pulse Oximetry (%) 97 06/04/19 09:00 Constitutional: Yes: No Distress Eyes: Yes: WNL HENT: Yes: WNL Neck: Yes: Other (no change) Cardiovascular: Yes: WNL Respiratory: Yes: Diminished, Poor Air Entry Gastrointestinal: Yes: WNL ...Rectal Exam: Yes: Deferred Genitourinary: Yes: WNL Breast(s): Yes: Left, Dimpling, Mass Musculoskeletal: Yes: WNL Extremities: Yes: WNL Edema: RUE: Trace Peripheral Pulses WNL: Yes Labs: CBC, BMP 06/03/19 06:30 06/03/19 06:30 INR, PTT INR 1.01 (0.83-1.09) 05/31/19 16:19 Problem List - Problems (1) Obese body habitus Code(s): E66.9 - OBESITY, UNSPECIFIED Assessment/Plan do katheryn ? ex bx if needed cont tx as is
[2019-06-04 16:34] LABS: BODY FLUID MACROPHAGES 50 %; BODY FLUID MESOTHELIAL 8 %; BODY FLUID MONOCYTE 12 %
--- NOTE | 2019-06-04 21:55 | PN ---
Progress Note (short form) - Note Progress Note: PAtient seen and examined Last Vital Signs Temp Pulse Resp BP Pulse Ox 97.9 F 83 18 140/78 97 06/04/19 18:00 06/04/19 18:00 06/04/19 18:00 06/04/19 18:00 06/04/19 09:00 Cor: RSR, No murmurs, No gallops Lungs: Clear to P&A Abd: Soft, Normal bowel sounds, No organomegaly Ext:No significant edema Left breast ---post RT chanes/ left axillary and supraclavicular adenopathy Active Medications Generic Name Dose Route Start Last Admin Trade Name Freq PRN Reason Stop Dose Admin Al Hydroxide/Mg Hydroxide 30 ml 06/02/19 22:52 Mylanta Oral Suspension - PO Q6H PRN INDIGESTION Albuterol Sulfate 2 puff 05/31/19 23:49 Ventolin Hfa Inhaler - IH Q4H PRN SHORT OF BREATH/WHEEZING Amlodipine Besylate 5 mg 06/05/19 10:00 Norvasc - PO DAILY [facility] Ipratropium [place] 1 amp 05/31/19 23:39 Atrovent 0.02% Nebulizer - NEB 06/07/19 23:39 Q6H PRN Dyspnea Pantoprazole Sodium 40 mg 06/02/19 10:00 06/04/19 10:13 Protonix - PO 40 mg DAILY [facility] Administration Spironolactone 25 mg 06/01/19 10:00 06/04/19 10:13 Aldactone - PO 25 mg DAILY [facility] Administration LAbs/MEds reviewed A/P 68F with likely metastatic breast cancer (bone lesions, pleural effusions b/l, ascites) p/w dyspnea. Pt was treated with RT x 7 to breast mass by Dr. Frost (no biopsy). Had bx of breast and axilla at [facility] in 01/2019 ( invasive mammary carcinoma, 1.5, 1.4 cm in size. ER on first biopsy ->95%, SD > 95%, Her-2 equivocal Suggest biopsy of either left supraclavicular node or left axillary node for ER , SD, Her-2-suyapa status. s/p thoracentesis for cytology CT c/a/p---b/; effusions, multiple osteoblastic mets,left axillary/ supraclavicular adenopathy, mesenteric adenopathy discussed above findings with patient. Gave her informational material on letrozole and palbociclib. discussed their side effecy profiles patient is in denial and not totally comprehending her situation will continue discussions
[2019-06-05 08:05] LABS: HEMATOCRIT 33.4 % (32.4-45.2); HEMOGLOBIN 11.1 GM/dL (10.7-15.3); MCH 30.3 pg (25.7-33.7); MCHC 33.1 g/dl (32.0-36.0); MEAN CELL VOLUME 91.6 fl (80-96); MEAN PLT VOLUME 9.1 fl (7.5-11.1); PLATELET COUNT 162 K/MM3 (134-434); RBC 3.65 M/mm3 (3.60-5.2); RDW 15.5 % (11.6-15.6); WHITE BLOOD COUNT 6.1 K/mm3 (4.0-10.0)
[2019-06-05 08:33] LABS: CALCIUM 8.7 mg/dL (8.5-10.1); CREATININE 0.9 mg/dL (0.55-1.3); POTASSIUM 4.2 mmol/L (3.5-5.1)
[2019-06-05] MEDS: PANTOPRAZOLE 40 MG TABLET PO SCH (09:40)
[2019-06-05] MEDS: SPIRONOLACTONE 25 MG TABLET (FP) PO SCH (09:40)
[2019-06-05] MEDS ORDERED: amLODIPine BESYLATE 5 MG TABLET (FP) PO SCH (10:00)
--- NOTE | 2019-06-05 11:09 | PN ---
Progress Note, Physician History of Present Illness: pulmonary alert,comfortable,-dyspnea improved. - Current Medication List Current Medications: Active Medications Al Hydroxide/Mg Hydroxide (Mylanta Oral Suspension -) 30 ml PO Q6H PRN PRN Reason: INDIGESTION Last Admin: 06/05/19 09:43 Dose: 30 ml Albuterol Sulfate (Ventolin Hfa Inhaler -) 2 puff IH Q4H PRN PRN Reason: SHORT OF BREATH/WHEEZING Amlodipine Besylate (Norvasc -) 5 mg PO DAILY [facility] Last Admin: 06/05/19 09:40 Dose: 5 mg Ipratropium [place] (Atrovent 0.02% Nebulizer -) 1 amp NEB Q6H PRN PRN Reason: Dyspnea Stop: 06/07/19 23:39 Pantoprazole Sodium (Protonix -) 40 mg PO DAILY [facility] Last Admin: 06/05/19 09:40 Dose: 40 mg Spironolactone (Aldactone -) 25 mg PO DAILY [facility] Last Admin: 06/05/19 09:40 Dose: 25 mg - Objective Vital Signs: Vital Signs Temperature 97.9 F 06/05/19 02:00 Pulse Rate 100 H 06/05/19 05:52 Respiratory Rate 06/05/19 08:26 Blood Pressure 149/70 06/05/19 05:52 O2 Sat by Pulse Oximetry (%) 94 L 06/05/19 08:26 Constitutional: Yes: Calm, Obese HENT: Yes: WNL Neck: Yes: WNL Cardiovascular: Yes: Regular Rate and Rhythm, S1, S2 Respiratory: Yes: Diminished Gastrointestinal: Yes: Normal Bowel Sounds, Soft Extremities: Yes: WNL Edema: Yes Labs: CBC, BMP 06/05/19 06:10 06/05/19 06:00 INR, PTT INR 1.01 (0.83-1.09) 05/31/19 16:19 Problem List - Problems (1) Ascites Code(s): R18.8 - OTHER ASCITES (2) Carcinomatosis Code(s): C80.0 - DISSEMINATED MALIGNANT NEOPLASM, UNSPECIFIED (3) Obese body habitus Code(s): E66.9 - OBESITY, UNSPECIFIED (4) Pleural effusion Code(s): J90 - PLEURAL EFFUSION, NOT ELSEWHERE CLASSIFIED (5) Dyspnea Code(s): R06.00 - DYSPNEA, UNSPECIFIED (6) Respiratory distress Code(s): R06.03 - ACUTE RESPIRATORY DISTRESS Assessment/Plan IMP RESPIRATORY DISTRESS BILATERAL PLEURAL EFFUSIONS LIKELY SECONDARY TO ASCITES LIKELY MALIGNANT METASTATIC CA LIKELY BREAST H/O BREAST CA S/P RT X 7 MULTILEVEL OSTEOBLASTIC LESIONS THORACOLUMBAR,PELVIC,STERNUM MORBID OBESITY PLAN O2,NIPPV NEEDED CHECK PLEURAL FLUID PATH, CHEMISTRIES LYMPH NODE BX MONITOR LYTES AMBULATORY O2 SAT ON RA Problem List - Problems (1) Ascites Code(s): R18.8 - OTHER ASCITES (2) Carcinomatosis Code(s): C80.0 - DISSEMINATED MALIGNANT NEOPLASM, UNSPECIFIED (3) Obese body habitus Code(s): E66.9 - OBESITY, UNSPECIFIED (4) Pleural effusion Code(s): J90 - PLEURAL EFFUSION, NOT ELSEWHERE CLASSIFIED (5) Dyspnea Code(s): R06.00 - DYSPNEA, UNSPECIFIED (6) Respiratory distress Code(s): R06.03 - ACUTE RESPIRATORY DISTRESS
--- NOTE | 2019-06-05 11:11 | DS ---
Physical Examination Vital Signs: Vital Signs Temperature 97.9 F 06/05/19 02:00 Pulse Rate 100 H 06/05/19 05:52 Respiratory Rate 20 06/05/19 08:26 Blood Pressure 149/70 06/05/19 05:52 O2 Sat by Pulse Oximetry (%) 94 L 06/05/19 08:26 Constitutional: Yes: No Distress Eyes: Yes: WNL HENT: Yes: WNL Neck: Yes: WNL Cardiovascular: Yes: WNL Respiratory: Yes: Other (more aeration) Gastrointestinal: Yes: WNL, Ascites ...Rectal Exam: Yes: Deferred Renal/: Yes: WNL Breast(s): Yes: Left, Dimpling, Mass Musculoskeletal: Yes: WNL Extremities: Yes: WNL Edema: Yes Edema: LLE: 1+, RLE: 2+ Peripheral Pulses WNL: Yes Integumentary: Yes: WNL Wound/Incision: Yes: Clean/Dry Neurological: Yes: WNL Labs: CBC, BMP 06/05/19 06:10 06/05/19 06:00 Discharge Summary Problems reviewed: Yes Reason For Visit: UNCONTROLLED HYPERTENSION Current Active Problems Ascites (Acute) Carcinomatosis (Acute) Dyspnea (Acute) Obese body habitus (Acute) Pleural effusion (Acute) Respiratory distress (Acute) Condition: Fair - Instructions Diet, Activity, Other Instructions: will walk her for o2 tx than decide d/c home appt with me thusrday 300 pm breast sx f/u out pt dr espinal spoke to him onco f/u dr acosta ? aramic inhibiter tx out pt mamogram out pt Referrals: Ran Sanchez MD [Primary Care Provider] - Disposition: HOME - Home Medications Comprehensive Discharge Medication List: Ambulatory Orders NK [No Known Home Medication] 05/31/19
[2019-06-05 11:16] VITALS: BP 125/80; TEMP 98.3
[2019-06-05 11:47] VITALS: PULSE 120
--- NOTE | 2019-06-07 10:17 | PATH ---
Cytology Non-Gynecological Report Patient Name: OUMAR OLEA Med. Rec. #: [id number] /Age/Gender: 1950 (Age: 68) / F Account: [id number] Location: 4 TELEMETRY U Taken: 06/04/2019 Received: 06/04/2019 Reported: 06/07/2019 Physicians: Dandy Flores M.D. Ran Sanchez M.D. Wil Malone M.D. Specimen(s) Received A: PLEURAL FLUID B: PLEURAL FLUID Clinical History Pleural effusion; history of breast cancer Final Diagnosis A, B: PLEURAL FLUID, THORACENTESIS : POSITIVE FOR MALIGNANCY. CONSISTENT WITH METASTATIC ADENOCARCINOMA OF BREAST PRIMARY. Comment: Immunohistochemical stained slides demonstrate tumor cells to be positive for AE1/AE3, CK7, ER, NC, Delia-3, Mammaglobin (scattered), and MOC 31, while negative for CK20, TTF-1, Napsin A, Calretinin, and GCDFP-15. In view of the clinical history of breast carcinoma, the immunophenotype supports a diagnosis of metastatic adenocarcinoma of breast primary. CD68 highlights the scattered macrophages in the background. Immunohistochemistry stains performed at [place], [place] ([id number]) interpreted at [facility]. Positive and negative controls (internal if applicable) show appropriate results. This case was discussed with Dr. Sanchez on 06/07/2019. Electronically Signed Jorge Liz M.D. Gross Description A. Approximately 50cc of cloudy fluid received fixed in 50% alcohol. One cytospin and one cellblock prepared. B. Approximately 1000cc of yellow fluid received fresh. One cytospin and one cellblock prepared.
== END 2019-06-05 13:21 | disposition home or self-care (01) | DRG 598 ==
LOC: SUPCPDRO 14:41 → JER 14:41 → JERBED 16:04 → J4W 06-01 09:34
PROVIDERS: ADMIT Family Medicine; ATTEND Family Medicine
PROC: 0W9B3ZX Drainage of Left Pleural Cavity, Percutaneous Approach, Diagnostic (ICD-10-PCS; principal; 2019-06-04)
DX: C50.919 Malignant neoplasm of unspecified site of unspecified female breast (principal); C79.51 Secondary malignant neoplasm of bone; J98.11 Atelectasis; R18.8 Other ascites; Z68.41 Body mass index [BMI] 40.0-44.9, adult; J91.0 Malignant pleural effusion; F41.9 Anxiety disorder, unspecified; E66.01 Morbid (severe) obesity due to excess calories; R06.03 Acute respiratory distress; R59.0 Localized enlarged lymph nodes
CPT/HCPCS: 36415; 36600; 71045-TC-FY; 71275-TC; 74177-TC; 76536-TC; 76604; 76937; 76942; 77074-TC-FY; 80048; 80053; 82150; 82378; 82465; 82550; 82784; 82803; 82945; 83615; 83735; 83880; 84100; 84157; 84484; 85025; 85027; 85610; 85730; 86301; 86304; 87070; 87075; 87102; 87116; 87205; 87206; 87210; 93005; 93010; 93306-TC; 93308; 93970; 94660; 94761; 99291; Q9967

== ENCOUNTER 2019-06-14 10:26 | Emergency (ER) | payer OTHER ==
--- NOTE | 2019-06-14 10:36 | PDOC ---
Attending Attestation - Resident Resident Name: Alice Crisostomo - HPI HPI: 06/14/19 12:41 Pt presents to the ED complaining of worsening of her chronic shortness of breath Patient is an extremely poor historian, and history is difficult to obtain. Recently admitted and discharged with home O2 that she has not obtained. Patient reported to me that her shortness of breath is not new and is no worse thn her previous shortness of breath. history of malignancy with osteoclastic lesions as per previous imaging at [place]. 06/14/19 12:47 - Physicial Exam PE: 06/14/19 12:49 Agree with resident exam. Patient is tachypneic, but speaking in complete sentences. + diffuse wheezing on exam. - Medical Decision Making 06/14/19 12:53 Pt presents to the ED complaining of shortness of breath, which quickly improved on being placed on home 02. Plan was for labs and CXR, likely admission, but patient refused all testing and insisted on leaving AMA. Patient understood the risk of infection and . will return to the ED for worsening symptoms.
--- NOTE | 2019-06-14 10:48 | PDOC ---
History of Present Illness - General Chief Complaint: Shortness of Breath Stated Complaint: SHORTNESS OF BREATH Time Seen by Provider: 06/14/19 10:34 - History of Present Illness Initial Comments: 06/14/19 11:23 68 yo F PMH likely metastatic breast cancer w/ bone lesions, b/l pleural effusions, ascites, treated with RT X7 by Dr. Frost (no biopsy), biopsy of breast and axilla at [facility] in January 2019 with invasive mammary carcinoma, ER > 95%, IL > 95%, Her-2 equivocal, s/p thoracentesis, recent admission for SOB, presenting with SOB. Patient was here to get her mammogram, seen to be SOB in the hospital lobby. Rapid response was called and patient was brought into the ER. Patient reports that she has not had a chance to call to get her oxygen. Endorses significant SOB and QUIJANO, but is insistent that she want to leave to get her mammogram. Past History - Past Medical History Allergies/Adverse Reactions: Allergies Allergy/AdvReac Type Severity Reaction Status Date / Time No Known Allergies Allergy Verified 05/31/19 14:44 Home Medications: Ambulatory Orders NK [No Known Home Medication] 05/31/19 COPD: No - Immunization History Immunization Up to Date: Yes - Psycho Social/Smoking Cessation Hx Smoking History: Never smoked Have you smoked in the past 12 months: No Information on smoking cessation initiated: No Hx Alcohol Use: No Drug/Substance Use Hx: No Substance Use Type: None Review of Systems - Review of Systems Comments:: 06/14/19 12:00 GENERAL/CONSTITUTIONAL: denies fever, chills, diaphoresis, generalized weakness, malaise, loss of appetite, weight change HEAD, EYES, EARS, NOSE AND THROAT: denies rhinorrhea, nasal congestion, throat pain, throat swelling, difficulty swallowing, mouth swelling, ear pain, eye pain, visual changes NEUROLOGIC: denies headache, focal weakness or paresthesias, dizziness, unsteady gait, seizure, mental status changes, bladder or bowel incontinence CARDIOVASCULAR: denies chest pain, syncope, palpitations, irregular heart rate, lightheadedness, peripheral edema RESPIRATORY: endorses shortness of breath and dyspnea with exertion. Denies cough, orthopnea, wheezing, stridor, hemoptysis GASTROINTESTINAL: denies abdominal pain, abdominal distension, nausea, vomiting, diarrhea, constipation, melena, hematochezia GENITOURINARY: denies dysuria, frequency, urgency, hesitancy, hematuria, flank pain, genital pain MUSCULOSKELETAL: denies myalgia, arthralgia, joint swelling, back pain, neck pain SKIN: denies rash, itching, pallor HEMATOLOGIC/IMMUNOLOGIC: denies easy bleeding, easy bruising, lymphadenopathy, frequent infections ENDOCRINE: denies unexplained weight gain, unexplained weight loss, heat intolerance, cold intolerance PSYCHIATRIC: denies anxiety, depression, suicidal or homicidal ideation, hallucinations *Physical Exam - Vital Signs Last Vital Signs Temp Pulse Resp BP Pulse Ox 98.6 F 113 H 24 H 174/113 H 97 06/14/19 10:06/14/19 10:06/14/19 10:06/14/19 10:06/14/19 10:41 - Physical Exam 06/14/19 12:01 Gen: well-developed, well-nourished, appears in distress Neuro: AAOX4, CN II-XII intact, FTN intact, EOMI, PERRLA, 5/5 strength, SILT HEENT: atraumatic, normocephalic Neck: trachea midline, supple CV: tachcyardic, regular rhythm, no murmurs, rubs, or gallops Pulm: diffuse coarse breath sounds Abd: soft, non-distended, non-tender MSK: full ROM, intact pulses Extr: no edema, no deformities Skin: warm, dry Medical Decision Making - Medical Decision Making 06/14/19 11:58 Patient declines to stay for testing despite significant hypoxia. Risks of worsening SOB and potential explained, and patient is insistent that she would like to leave AMA. She has capacity to make this decision. Will be signed out AMA. Discharge - Discharge Information Problems reviewed: Yes Clinical Impression/Diagnosis: SOB (shortness of breath) Condition: Guarded Disposition: AGAINST MEDICAL ADVICE - Follow up/Referral - Patient Discharge Instructions - Post Discharge Activity
[2019-06-14 11:17] VITALS: BP 174/113; PULSE 113; TEMP 98.6; BMI 44.4
== END 2019-06-14 11:27 | disposition left against medical advice (07) ==
LOC: JER 10:26
DX: R06.02 Shortness of breath (principal); C50.919 Malignant neoplasm of unspecified site of unspecified female breast; C79.51 Secondary malignant neoplasm of bone; E66.01 Morbid (severe) obesity due to excess calories; Z68.41 Body mass index [BMI] 40.0-44.9, adult
CPT/HCPCS: 99282-25

== ENCOUNTER 2020-02-26 13:58 | Inpatient (IN) | payer OTHER ==
[2020-02-26 14:11] VITALS: BMI 48.7
[2020-02-26 15:42] LABS: BASO % 0.6 % (0-2.0); HEMATOCRIT 36.2 % (32.4-45.2); HEMOGLOBIN 12.1 GM/dL (10.7-15.3); LYMPH % 14.4 % (8-40); MCH 30.1 pg (25.7-33.7); MCHC 33.4 g/dl (32.0-36.0); MEAN CELL VOLUME 90.1 fl (80-96); MEAN PLT VOLUME 9.2 fl (7.5-11.1); MONO % 6.4 % (3.8-10.2); NEUT % 76.6 % (42.8-82.8); PLATELET COUNT 208 K/MM3 (134-434); RBC 4.01 M/mm3 (3.60-5.2); RDW 14.7 % (11.6-15.6)
[2020-02-26 15:58] LABS: ACTIVATED PTT 34.7 SECONDS (25.2-36.5); INR 1.02 (0.83-1.09); PROTHROMBIN TIME (PATIENT) 12.3 SEC (9.7-13.0)
[2020-02-26 16:02] LABS: CHLORIDE 104 mmol/L (98-107); POTASSIUM 4.4 mmol/L (3.5-5.1); SODIUM 140 mmol/L (136-145)
[2020-02-26 16:04] LABS: ALBUMIN 3.1 g/dl (3.4-5.0); ANION GAP 5 MMOL/L (8-16); BLOOD UREA NITROGEN 18.1 mg/dL (7-18); CALCIUM 8.6 mg/dL (8.5-10.1); CO2 31 mmol/L (21-32); GLUCOSE,RANDOM 89 mg/dL (74-106)
[2020-02-26 16:07] LABS: CREATININE 0.8 mg/dL (0.55-1.3); SGOT/AST 45 U/L (15-37); SGPT/ALT 28 U/L (13-61)
[2020-02-26 16:09] LABS: BILIRUBIN,TOTAL 0.4 mg/dL (0.2-1); TOT PROT 6.8 g/dl (6.4-8.2)
[2020-02-26 16:10] LABS: ALK PHOS 94 U/L (45-117)
[2020-02-26 16:14] LABS: N-TERMINAL BNP 320.5 pg/ml (5-125)
[2020-02-27 07:03] LABS: BASO % 0.7 % (0-2.0); HEMATOCRIT 34.3 % (32.4-45.2); HEMOGLOBIN 11.2 GM/dL (10.7-15.3); LYMPH % 16.2 % (8-40); MCH 29.3 pg (25.7-33.7); MCHC 32.8 g/dl (32.0-36.0); MEAN CELL VOLUME 89.6 fl (80-96); MEAN PLT VOLUME 8.3 fl (7.5-11.1); MONO % 6.8 % (3.8-10.2); NEUT % 73.3 % (42.8-82.8); PLATELET COUNT 174 K/MM3 (134-434); RBC 3.83 M/mm3 (3.60-5.2); RDW 14.5 % (11.6-15.6); WHITE BLOOD COUNT 5.4 K/mm3 (4.0-10.0)
[2020-02-27 07:12] LABS: POTASSIUM 4.3 mmol/L (3.5-5.1)
[2020-02-27 07:15] LABS: ALBUMIN 2.9 g/dl (3.4-5.0); BLOOD UREA NITROGEN 18.6 mg/dL (7-18); CALCIUM 8.8 mg/dL (8.5-10.1)
[2020-02-27 07:20] LABS: BILIRUBIN,TOTAL 0.6 mg/dL (0.2-1); TOT PROT 6.2 g/dl (6.4-8.2)
[2020-02-27] MEDS ORDERED: amLODIPine BESYLATE 5 MG TABLET (FP) ONE (08:55)
[2020-02-27] MEDS ORDERED: PANTOPRAZOLE SODIUM 40 MG VIAL ONE (08:56)
[2020-02-27] MEDS: PANTOPRAZOLE SODIUM 40 MG VIAL IVPUSH SCH (09:03)
[2020-02-27] MEDS: LETROZOLE 2.5 MG TABLET (FP) PO SCH (09:03)
[2020-02-27] MEDS: amLODIPine BESYLATE 5 MG TABLET (FP) PO SCH (09:03)
[2020-02-27 19:34] LABS: BODY FLUID MACROPHAGES 33 %; BODY FLUID MONOCYTE 3 %
[2020-02-28 07:14] LABS: BASO % 0.5 % (0-2.0); EOS % 3.3 % (0-4.5); HEMATOCRIT 35.2 % (32.4-45.2); HEMOGLOBIN 11.4 GM/dL (10.7-15.3); LYMPH % 14.2 % (8-40); MCH 29.1 pg (25.7-33.7); MCHC 32.3 g/dl (32.0-36.0); MEAN CELL VOLUME 90.1 fl (80-96); MEAN PLT VOLUME 8.8 fl (7.5-11.1); MONO % 7.5 % (3.8-10.2); NEUT % 74.5 % (42.8-82.8); PLATELET COUNT 171 K/MM3 (134-434); RDW 14.6 % (11.6-15.6); WHITE BLOOD COUNT 5.6 K/mm3 (4.0-10.0)
[2020-02-28 07:31] LABS: POTASSIUM 4.2 mmol/L (3.5-5.1)
[2020-02-28 07:37] LABS: CALCIUM 8.4 mg/dL (8.5-10.1)
[2020-02-28 07:38] LABS: ALBUMIN 2.8 g/dl (3.4-5.0)
[2020-02-28 07:41] LABS: CREATININE 0.8 mg/dL (0.55-1.3)
[2020-02-28 08:22] LABS: BILIRUBIN,TOTAL 0.4 mg/dL (0.2-1)
[2020-02-28] MEDS ORDERED: PT OWN MED DRAWER 7, Y5N ONE (09:46)
[2020-02-28] MEDS: amLODIPine BESYLATE 5 MG TABLET (FP) PO SCH (14:05)
[2020-02-28] MEDS: PANTOPRAZOLE SODIUM 40 MG VIAL IVPUSH SCH (14:05)
[2020-02-28] MEDS: LETROZOLE 2.5 MG TABLET (FP) PO SCH (14:05)
[2020-02-28] MEDS: PRAMIPEXOLE DIHYDROCHLORIDE 0.25 MG TABLET PO SCH (17:34)
[2020-02-29 07:22] LABS: BASO % 0.6 % (0-2.0); EOS % 2.9 % (0-4.5); HEMOGLOBIN 11.6 GM/dL (10.7-15.3); LYMPH % 19.7 % (8-40); MCH 29.1 pg (25.7-33.7); MCHC 32.3 g/dl (32.0-36.0); MEAN CELL VOLUME 90.1 fl (80-96); MEAN PLT VOLUME 8.6 fl (7.5-11.1); MONO % 7.5 % (3.8-10.2); NEUT % 69.3 % (42.8-82.8); PLATELET COUNT 173 K/MM3 (134-434); RBC 3.99 M/mm3 (3.60-5.2); RDW 14.7 % (11.6-15.6); WHITE BLOOD COUNT 5.6 K/mm3 (4.0-10.0)
[2020-02-29 07:57] LABS: POTASSIUM 4.2 mmol/L (3.5-5.1)
[2020-02-29 07:59] LABS: BLOOD UREA NITROGEN 16.6 mg/dL (7-18)
[2020-02-29 08:00] LABS: CALCIUM 8.5 mg/dL (8.5-10.1)
[2020-02-29 08:03] LABS: CREATININE 0.7 mg/dL (0.55-1.3)
[2020-02-29] MEDS ORDERED: PT OWN MED DRAWER 7, Y5N ONE (09:11)
[2020-02-29] MEDS: amLODIPine BESYLATE 5 MG TABLET (FP) PO SCH (09:19)
[2020-02-29] MEDS: PANTOPRAZOLE SODIUM 40 MG VIAL IVPUSH SCH (09:19)
[2020-02-29] MEDS: PRAMIPEXOLE DIHYDROCHLORIDE 0.25 MG TABLET PO SCH ×2 (09:19→17:41)
[2020-02-29] MEDS: LETROZOLE 2.5 MG TABLET (FP) PO SCH (09:19)
[2020-02-29 14:07] LABS: BODY FLUID ALBUMIN 2.5 g/dL (Not Estab.)
[2020-03-01 07:14] LABS: BASO % 0.7 % (0-2.0); EOS % 3.4 % (0-4.5); HEMATOCRIT 36.8 % (32.4-45.2); HEMOGLOBIN 12.1 GM/dL (10.7-15.3); LYMPH % 19.5 % (8-40); MCH 29.4 pg (25.7-33.7); MCHC 32.9 g/dl (32.0-36.0); MEAN CELL VOLUME 89.2 fl (80-96); MEAN PLT VOLUME 8.6 fl (7.5-11.1); MONO % 7.2 % (3.8-10.2); NEUT % 69.2 % (42.8-82.8); PLATELET COUNT 189 K/MM3 (134-434); RBC 4.12 M/mm3 (3.60-5.2); RDW 14.7 % (11.6-15.6); WHITE BLOOD COUNT 5.5 K/mm3 (4.0-10.0)
[2020-03-01 07:34] LABS: POTASSIUM 4.2 mmol/L (3.5-5.1)
[2020-03-01 07:47] LABS: BLOOD UREA NITROGEN 12.5 mg/dL (7-18); CALCIUM 8.4 mg/dL (8.5-10.1)
[2020-03-01 07:50] LABS: CREATININE 0.7 mg/dL (0.55-1.3)
[2020-03-01 07:52] LABS: BILIRUBIN,TOTAL 0.4 mg/dL (0.2-1); TOT PROT 6.3 g/dl (6.4-8.2)
[2020-03-01] MEDS ORDERED: PT OWN MED DRAWER 7, Y5N ONE (08:46)
[2020-03-01] MEDS: PRAMIPEXOLE DIHYDROCHLORIDE 0.25 MG TABLET PO SCH ×3 (09:30→17:29)
[2020-03-01] MEDS: amLODIPine BESYLATE 5 MG TABLET (FP) PO SCH (09:30)
[2020-03-01] MEDS: LETROZOLE 2.5 MG TABLET (FP) PO SCH (09:30)
[2020-03-01] MEDS: PANTOPRAZOLE SODIUM 40 MG VIAL IVPUSH SCH (10:17)
[2020-03-02 07:02] LABS: BASO % 1.1 % (0-2.0); HEMATOCRIT 36.2 % (32.4-45.2); HEMOGLOBIN 12.1 GM/dL (10.7-15.3); LYMPH % 18.8 % (8-40); MCH 29.8 pg (25.7-33.7); MCHC 33.4 g/dl (32.0-36.0); MEAN CELL VOLUME 89.2 fl (80-96); MONO % 6.1 % (3.8-10.2); PLATELET COUNT 167 K/MM3 (134-434); RBC 4.06 M/mm3 (3.60-5.2); RDW 14.5 % (11.6-15.6); WHITE BLOOD COUNT 5.3 K/mm3 (4.0-10.0)
[2020-03-02 07:26] LABS: POTASSIUM 4.1 mmol/L (3.5-5.1)
[2020-03-02 07:35] LABS: BLOOD UREA NITROGEN 12.8 mg/dL (7-18); CALCIUM 8.4 mg/dL (8.5-10.1)
[2020-03-02 07:36] LABS: ALBUMIN 2.9 g/dl (3.4-5.0)
[2020-03-02 07:39] LABS: CREATININE 0.7 mg/dL (0.55-1.3)
[2020-03-02 07:40] LABS: BILIRUBIN,TOTAL 0.9 mg/dL (0.2-1); TOT PROT 6.2 g/dl (6.4-8.2)
[2020-03-02] MEDS: LETROZOLE 2.5 MG TABLET (FP) PO SCH (10:10)
[2020-03-02] MEDS: PRAMIPEXOLE DIHYDROCHLORIDE 0.25 MG TABLET PO SCH ×2 (10:10→17:53)
[2020-03-02] MEDS: PANTOPRAZOLE SODIUM 40 MG VIAL IVPUSH SCH (10:10)
[2020-03-02] MEDS: amLODIPine BESYLATE 10 MG TABLET (FP) PO SCH (10:10)
[2020-03-03] MEDS: amLODIPine BESYLATE 10 MG TABLET (FP) PO SCH (09:43)
[2020-03-03] MEDS: PRAMIPEXOLE DIHYDROCHLORIDE 0.25 MG TABLET PO SCH ×3 (09:44→22:21)
[2020-03-03] MEDS: PANTOPRAZOLE 40 MG TABLET PO SCH (09:44)
[2020-03-03] MEDS ORDERED: PT OWN MED DRAWER 7, Y5N ONE (09:48)
[2020-03-03] MEDS: LETROZOLE 2.5 MG TABLET (FP) PO SCH (09:48)
[2020-03-03] MEDS ORDERED: DEXTROSE 5%-WATER 100 ML IVPB ONE (16:57)
[2020-03-03] MEDS: CEFTRIAXONE 2 GM in DEXTROSE 5%-WATER 2 GM/100 ML BAG IVPB SCH (17:01)
[2020-03-04] MEDS ORDERED: DEXTROSE 5%-WATER 100 ML IVPB ONE (09:12)
[2020-03-04] MEDS: CEFTRIAXONE 2 GM in DEXTROSE 5%-WATER 2 GM/100 ML BAG IVPB SCH (09:44)
[2020-03-04] MEDS: amLODIPine BESYLATE 10 MG TABLET (FP) PO SCH (09:44)
[2020-03-04] MEDS: LETROZOLE 2.5 MG TABLET (FP) PO SCH (09:44)
[2020-03-04] MEDS: PANTOPRAZOLE 40 MG TABLET PO SCH (09:45)
[2020-03-04] MEDS: PRAMIPEXOLE DIHYDROCHLORIDE 0.25 MG TABLET PO SCH (21:28)
[2020-03-05 08:30] LABS: BASO % 0.9 % (0-2.0); EOS % 3.2 % (0-4.5); HEMATOCRIT 35.3 % (32.4-45.2); HEMOGLOBIN 11.7 GM/dL (10.7-15.3); LYMPH % 19.9 % (8-40); MCH 29.5 pg (25.7-33.7); MEAN CELL VOLUME 89.3 fl (80-96); MONO % 6.9 % (3.8-10.2); NEUT % 69.1 % (42.8-82.8); PLATELET COUNT 164 K/MM3 (134-434); RBC 3.95 M/mm3 (3.60-5.2); RDW 14.4 % (11.6-15.6); WHITE BLOOD COUNT 4.9 K/mm3 (4.0-10.0)
[2020-03-05 08:43] LABS: POTASSIUM 4.1 mmol/L (3.5-5.1)
[2020-03-05 08:47] LABS: BLOOD UREA NITROGEN 15.7 mg/dL (7-18); CALCIUM 8.5 mg/dL (8.5-10.1)
[2020-03-05 08:50] LABS: CREATININE 0.8 mg/dL (0.55-1.3)
[2020-03-05] MEDS ORDERED: DEXTROSE 5%-WATER 100 ML IVPB ONE (08:55)
[2020-03-05] MEDS: amLODIPine BESYLATE 10 MG TABLET (FP) PO SCH (09:37)
[2020-03-05] MEDS: CEFTRIAXONE 2 GM in DEXTROSE 5%-WATER 2 GM/100 ML BAG IVPB SCH (09:37)
[2020-03-05] MEDS: LETROZOLE 2.5 MG TABLET (FP) PO SCH (09:37)
[2020-03-05] MEDS: PANTOPRAZOLE 40 MG TABLET PO SCH (09:37)
[2020-03-05] MEDS: PRAMIPEXOLE DIHYDROCHLORIDE 0.25 MG TABLET PO SCH (21:12)
[2020-03-06] MEDS ORDERED: DEXTROSE 5%-WATER 100 ML IVPB ONE (09:12)
[2020-03-06] MEDS: LETROZOLE 2.5 MG TABLET (FP) PO SCH (09:19)
[2020-03-06] MEDS: CEFTRIAXONE 2 GM in DEXTROSE 5%-WATER 2 GM/100 ML BAG IVPB SCH (09:19)
[2020-03-06] MEDS: PANTOPRAZOLE 40 MG TABLET PO SCH (09:19)
[2020-03-06] MEDS: amLODIPine BESYLATE 10 MG TABLET (FP) PO SCH (09:19)
[2020-03-06] MEDS: PRAMIPEXOLE DIHYDROCHLORIDE 0.25 MG TABLET PO SCH (21:29)
[2020-03-07] MEDS ORDERED: PT OWN MED DRAWER 7, Y5N ONE (09:35)
[2020-03-07] MEDS ORDERED: DEXTROSE 5%-WATER 100 ML IVPB ONE (09:35)
[2020-03-07] MEDS: LETROZOLE 2.5 MG TABLET (FP) PO SCH (09:37)
[2020-03-07] MEDS: PANTOPRAZOLE 40 MG TABLET PO SCH (09:37)
[2020-03-07] MEDS: amLODIPine BESYLATE 10 MG TABLET (FP) PO SCH (09:37)
[2020-03-07] MEDS: CEFTRIAXONE 2 GM in DEXTROSE 5%-WATER 2 GM/100 ML BAG IVPB SCH (09:37)
[2020-03-07 14:14] VITALS: BP 146/85; PULSE 88; TEMP 97.6
== END 2020-03-07 16:27 | disposition home or self-care (01) | DRG 597 ==
LOC: JER 13:58 → JERBED 18:19 → J4W 02-27 21:14
PROVIDERS: ADMIT Family Medicine; ATTEND Family Medicine
PROC: 0W993ZZ Drainage of Right Pleural Cavity, Percutaneous Approach (ICD-10-PCS; principal; 2020-02-29)
PROC: 02HV33Z Insertion of Infusion Device into Superior Vena Cava, Percutaneous Approach (ICD-10-PCS; 2020-03-06)
PROC: B548ZZA Ultrasonography of Superior Vena Cava, Guidance (ICD-10-PCS; 2020-03-06)
DX: C50.919 Malignant neoplasm of unspecified site of unspecified female breast (principal); J96.01 Acute respiratory failure with hypoxia; J96.02 Acute respiratory failure with hypercapnia; G81.90 Hemiplegia, unspecified affecting unspecified side; J91.0 Malignant pleural effusion; Z68.42 Body mass index [BMI] 45.0-49.9, adult; R18.8 Other ascites; C79.51 Secondary malignant neoplasm of bone; M79.604 Pain in right leg; G25.81 Restless legs syndrome; G47.00 Insomnia, unspecified; G62.9 Polyneuropathy, unspecified; E66.01 Morbid (severe) obesity due to excess calories
CPT/HCPCS: 36415; 36569; 71045-TC-FY; 71275-TC; 72125-TC; 72128-TC; 72131-TC; 76942; 77001-TC-FY; 80048; 80053; 82042; 82150; 82465; 82550; 82553; 82728; 82945; 83615; 83880; 83986; 84157; 84478; 84484; 85025; 85379; 85610; 85730; 86140; 86300; 87070; 87075; 87102; 87116; 87186; 87205; 87206; 87210; 88108; 88305-TC; 88341-TC; 93005; 93010; 93971; 93971-TC; 94660; 94761; 97116-GP; 97162-GP; 99285-25; C1751; C9803; Q9967; U0003